=== PATIENT | female | born 1960 | race Caucasian/White ===

== ENCOUNTER 2021-04-05 06:03 | Outpatient (REF) | payer OTHER, SELFPAY ==
[2021-04-05 11:40] LABS: Hematocrit 38.9 % (37-47); Hemoglobin 13.4 g/dl (12.0-16.0); Mean Corpuscular HGB Conc 34.4 g/dl (31.0-35.0); Mean Corpuscular Hemoglobin 32.1 pg (27.0-33.0); Mean Corpuscular Volume 93.3 fL (80-98); Platelet Count 242 X10*3/uL (160-400); Red Blood Count 4.17 X10*6/uL (4.20-5.50); Red Cell Distribution Width 12.3 % (11.0-16.0); White Blood Count 4.1 X10*3/uL (4.8-10.8)
[2021-04-05 12:04] LABS: Alanine Aminotransferase 58 U/L (0-31); Albumin Level 4.1 g/dL (3.5-5.0); Alkaline Phosphatase 55 U/L (39-117); Anion Gap 15 (12-20); Aspartate Amino Transferase 35 U/L (5-31); Bilirubin Total 0.7 mg/dL (0.0-1.0); Blood Urea Nitrogen 19 mg/dL (9-16); Calcium 9.1 mg/dL (8.4-10.2); Carbon Dioxide 26 mmol/L (22-29); Chloride 105 mmol/L (96-108); Cholesterol 266 mg/dL; Estimated Glomerular Filt Rate > 60; Glucose Fasting 114 mg/dL (60-99); HDL Cholesterol 68 mg/dL; LDL Cholesterol Calculated 162 mg/dl; Potassium 3.8 mmol/L (3.3-5.1); Sodium 142 mmol/L (135-145); Total Protein 6.5 g/dL (6.5-8.0); Triglycerides 181 mg/dL
[2021-04-05 12:24] LABS: Thyroid Stimulating Hormone 1.41 uIU/mL (0.32-4.0)
== END 2021-04-05 06:04 | disposition home or self-care (01) ==
LOC: HO.HMGCLDS 06:03
PROVIDERS: PCP Internal Medicine; Visit Provider Internal Medicine
DX: Z00.00 Encounter for general adult medical examination without abnormal findings (principal); I10 Essential (primary) hypertension
CPT/HCPCS: 36415; 80053; 80061; 84443; 85027

== ENCOUNTER 2021-10-11 08:51 | Outpatient (REF) | payer OTHER, SELFPAY ==
[2021-10-11 11:27] LABS: MANUAL DIFF FLAG NO
[2021-10-11 11:37] LABS: Basophils Percent Auto 0.5 % (0-2); Eosinophils Absolute Auto 0.1 X10*3/uL (0.0-0.4); Eosinophils Percent Auto 1.7 % (0-4); Hematocrit 40.3 % (37.0-47.0); Hemoglobin 14.1 g/dl (12.0-16.0); Imm Gran Abs Auto 0.01 X10*3/uL (0.00-0.03); Imm Gran Pct Auto 0.2 % (0.0-0.4); Lymphocytes Absolute Auto 1.7 X10*3/uL (1.2-4.9); Lymphocytes Percent Auto 42.3 % (20-40); Mean Corpuscular Hemoglobin 32.2 pg (27.0-33.0); Mean Platelet Volume 10.1 fL (9.4-12.3); Monocytes Absolute Auto 0.3 X10*3/uL (0.1-1.2); Monocytes Percent Auto 7.2 % (2-11); Neutrophils Absolute Auto 1.9 x10*3/uL (2.0-8.3); Neutrophils Percent Auto 48.1 % (45-73); Platelet Count 285 X10*3/uL (160-400); Red Blood Count 4.38 X10*6/uL (4.20-5.50); Red Cell Distribution Width 11.7 % (11.0-16.0)
[2021-10-11 12:02] LABS: Alanine Aminotransferase 44 U/L (0-31); Albumin Level 4.3 g/dL (3.5-5.0); Alkaline Phosphatase 57 U/L (39-117); Anion Gap 13 (12-20); Aspartate Amino Transferase 24 U/L (5-31); Bilirubin Total 0.6 mg/dL (0.0-1.0); Blood Urea Nitrogen 19 mg/dL (9-16); Calcium 9.5 mg/dL (8.4-10.2); Carbon Dioxide 28 mmol/L (22-29); Chloride 104 mmol/L (96-108); Cholesterol 275 mg/dL; Estimated Glomerular Filt Rate > 60; Glucose Fasting 115 mg/dL (60-99); HDL Cholesterol 64 mg/dL; LDL Cholesterol Calculated 176 mg/dl; Potassium 4.1 mmol/L (3.3-5.1); Sodium 141 mmol/L (135-145); Triglycerides 178 mg/dL
[2021-10-11 12:05] LABS: TSH reflex Free T4 1.06 uIU/mL (0.32-4.0)
[2021-10-11 12:08] LABS: Estimated Average Glucose 111 mg/dL; Hemoglobin A1c % 5.5 %
== END 2021-10-11 08:52 | disposition home or self-care (01) ==
LOC: HO.HMGCLDS 08:51
PROVIDERS: PCP Internal Medicine; Visit Provider Internal Medicine
DX: Z00.00 Encounter for general adult medical examination without abnormal findings (principal); I10 Essential (primary) hypertension; E78.5 Hyperlipidemia, unspecified; R73.9 Hyperglycemia, unspecified
CPT/HCPCS: 36415; 80053; 80061; 83036; 84443; 85025

== ENCOUNTER 2022-01-28 06:22 | Outpatient (REF) | payer OTHER, SELFPAY ==
[2022-01-28 12:26] LABS: Alanine Aminotransferase 42 U/L (0-31); Albumin Level 4.3 g/dL (3.5-5.0); Alkaline Phosphatase 62 U/L (39-117); Anion Gap 12 (12-20); Aspartate Amino Transferase 27 U/L (5-31); Bilirubin Total 0.9 mg/dL (0.0-1.0); Blood Urea Nitrogen 16 mg/dL (9-16); Calcium 9.8 mg/dL (8.4-10.2); Carbon Dioxide 31 mmol/L (22-29); Chloride 102 mmol/L (96-108); Cholesterol 189 mg/dL; Estimated Glomerular Filt Rate > 60; Glucose Fasting 128 mg/dL (60-99); HDL Cholesterol 73 mg/dL; LDL Cholesterol Calculated 91 mg/dl; Potassium 3.7 mmol/L (3.3-5.1); Sodium 141 mmol/L (135-145); Total Protein 6.9 g/dL (6.5-8.0); Triglycerides 126 mg/dL
[2022-01-28 12:38] LABS: Estimated Average Glucose 111 mg/dL; Hemoglobin A1C 150.8578 umol/L; Hemoglobin A1c % 5.5 %
== END 2022-01-28 06:23 | disposition home or self-care (01) ==
LOC: HO.HMGCLDS 06:22
PROVIDERS: Visit Provider Internal Medicine
DX: E78.5 Hyperlipidemia, unspecified (principal); R73.9 Hyperglycemia, unspecified
CPT/HCPCS: 36415; 80053; 80061; 83036

== ENCOUNTER → 2022-07-28 12:38 | Outpatient (REF) | payer OTHER, SELFPAY ==
--- NOTE | 2022-07-28 12:40 | CA_ITS ---
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 Normal LV systolic function with grade 1 diastolic dysfunction 2. Normal cardiac valvular Doppler 3. No gross pericardial effusion Findings Left Ventricle Normal left ventricular size, thickness, and systolic function. The visually estimated ejection fraction is between 55-60%. Spectral Doppler is indicative of an impaired relaxation filling pattern. E/E prime ratio is <8, consistent with normal filling pressures. Evidence suggests grade I (mild) diastolic dysfunction. Right Ventricle Normal right ventricular cavity size and systolic function. Atria The left atrium is normal in size. Interatrial shunt cannot be excluded. The right atrium is normal in size. Aortic Valve The aortic valve was not well visualized. There is no aortic valve stenosis. There is no aortic valve regurgitation. Mitral Valve Likely normal mitral valve structure and function. There is trace mitral valve regurgitation. There is no mitral valve stenosis. Pulmonic Valve The pulmonic valve was not well visualized. Tricuspid Valve Likely normal tricuspid valve structure and function. Tricuspid regurgitation envelope is inadequate for calculation of right ventricular systolic pressure. Normal right atrial pressure. Great Vessels All visible segments of the aorta are normal in size. The pulmonary artery was not well visualized. Venous The inferior vena cava is normal in size and collapses greater than 50% with inspiration. Pericardium/Pleural There is no evidence of pericardial effusion. Prior Study Comparison No prior study available for comparison. Measurements 2D Linear Measurements IVSd: 0.94 0.6-0.9/0.6-1.0 cm LVIDd: 4.21 3.9-5.3/4.2-5.9 cm LVIDd Index: 2.37 2.4-3.2/2.2-3.1 cm/m2 LVIDs: 2.77 2.0-3.6 cm LVPWd: 0.81 0.7-1.1 cm LA Diam: 3.20 2.7-3.8/3.0-4.0 cm LAIDs Index: 1.80 1.5-2.3 cm/m2 LV Mass: 142.46 67-162/88-224 g LV Mass Index: 80.04 43-95/49-115 g/m2 LVOT Diam: 2.00 3.0+(-)1.3 cm 2D Systolic Function EF 4C: 59.20 >55% EF 2C: 55.50 >55% EF BiP: 55.90 >55% Mitral Valve MV Pk E: 0.48 MV PK A: 0.52 MV Decel Time: 262.00 E/A: 0.90 E'Lateral: 7.40 E'Medial: 6.74 E/E' Med: 7.10 E/E' Lat: 6.40 PHT: 77.00 MVA PHT: 2.86 Decel Ness: 1.82 Aortic Valve AoV Pk Marek: 1.42 AoV Mn Marek: 0.96 AoV VTI: 0.27 AoV Pk Grad: 8.00 Aov Mn Grad: 4.00 UMA Cont.VTI: 1.99 LVOT LVOT Pk Marek: 0.93 LVOT Mn Marek: 0.59 LVOT VTI: 0.17 LVOT Pk Grad: 3.00 LVOT Mn Grad: 2.00 LVOT Diam: 2.00 LVOT Area: 3.14 Diastolic Function MV Pk E: 0.48 MV Pk A: 0.52 E/A: 0.90 E'Medial: 6.74 E/E' Med: 7.10 E' Laterial: 7.40 E/E' Lat: 6.40 Right Ventricle TAPSE (mm): 19.90 TVS' Marek: 8.49 Tricuspid Valve TR Pk Marek: 1.85 TR Pk Grad: 14.00 RA Press: 3.00 Great Vessels Aorta Sinus of Valsalva: 3.34 2.0-3.5 cm Ao Asc: 3.30 2.1-3.4 cm Updated in Other Vendor System with Status of Final Billy Griffith MD electronically signed on 07/28/2022 3:45:30 PM with status of Final
== END ==
LOC: HO.CARD 12:38
PROVIDERS: PCP Internal Medicine; Visit Provider Internal Medicine
DX: I51.7 Cardiomegaly (principal)
CPT/HCPCS: 93306

== ENCOUNTER 2022-10-17 06:22 | Outpatient (REF) | payer OTHER, SELFPAY ==
[2022-10-17 11:12] LABS: MANUAL DIFF FLAG NO
[2022-10-17 11:43] LABS: Basophils Percent Auto 0.4 % (0-2); Eosinophils Absolute Auto 0.1 X10*3/uL (0.0-0.4); Hematocrit 41.4 % (37.0-47.0); Hemoglobin 14.1 g/dl (12.0-16.0); Imm Gran Abs Auto 0.01 X10*3/uL (0.00-0.03); Imm Gran Pct Auto 0.2 % (0.0-0.4); Lymphocytes Percent Auto 41.6 % (20-40); Mean Corpuscular HGB Conc 34.1 g/dl (31.0-35.0); Mean Corpuscular Hemoglobin 31.3 pg (27.0-33.0); Monocytes Absolute Auto 0.3 X10*3/uL (0.1-1.2); Monocytes Percent Auto 6.6 % (2-11); Neutrophils Absolute Auto 2.3 x10*3/uL (2.0-8.3); Neutrophils Percent Auto 48.2 % (45-73); Platelet Count 260 X10*3/uL (160-400); Red Cell Distribution Width 12.3 % (11.0-16.0); White Blood Count 4.7 X10*3/uL (4.8-10.8)
[2022-10-17 12:00] LABS: Estimated Average Glucose 114 mg/dL; Hemoglobin A1c % 5.6 %
[2022-10-17 13:20] LABS: Alanine Aminotransferase 33 U/L (0-31); Albumin Level 4.2 g/dL (3.5-5.0); Alkaline Phosphatase 61 U/L (39-117); Anion Gap 11 (12-20); Aspartate Amino Transferase 21 U/L (5-31); Bilirubin Total 0.7 mg/dL (0.0-1.0); Blood Urea Nitrogen 17 mg/dL (9-16); Calcium 9.7 mg/dL (8.4-10.2); Carbon Dioxide 30 mmol/L (22-29); Chloride 101 mmol/L (96-108); Cholesterol 184 mg/dL; Estimated Glomerular Filt Rate > 60; Glucose Fasting 117 mg/dL (60-99); HDL Cholesterol 67 mg/dL; LDL Cholesterol Calculated 85 mg/dl; Potassium 4.2 mmol/L (3.3-5.1); Sodium 138 mmol/L (135-145); TSH reflex Free T4 2.31 uIU/mL (0.32-4.0); Total Protein 6.6 g/dL (6.5-8.0); Triglycerides 160 mg/dL; Vitamin D 25-OH Total 18.1 ng/mL (>30)
== END 2022-10-17 06:23 | disposition home or self-care (01) ==
LOC: HO.HMGCLDS 06:22
PROVIDERS: PCP Internal Medicine; Visit Provider Internal Medicine
DX: I10 Essential (primary) hypertension (principal); R73.9 Hyperglycemia, unspecified; E78.5 Hyperlipidemia, unspecified
CPT/HCPCS: 36415; 80053; 80061; 82306; 83036; 84443; 85025

== ENCOUNTER 2022-12-22 06:09 | Outpatient (REF) | payer OTHER, SELFPAY ==
[2022-12-22 12:05] LABS: Vitamin D 25-OH Total 38.5 ng/mL (>30)
== END 2022-12-22 06:10 | disposition home or self-care (01) ==
LOC: HO.HMGCLDS 06:09
PROVIDERS: PCP Internal Medicine; Visit Provider Internal Medicine
DX: I10 Essential (primary) hypertension (principal); E78.5 Hyperlipidemia, unspecified; E55.9 Vitamin D deficiency, unspecified
CPT/HCPCS: 36415; 82306

== ENCOUNTER 2023-04-13 06:24 | Outpatient (REF) | payer OTHER, SELFPAY ==
[2023-04-13 11:12] LABS: MANUAL DIFF FLAG NO
[2023-04-13 11:33] LABS: Basophils Percent Auto 0.7 % (0-2); Eosinophils Absolute Auto 0.1 X10*3/uL (0.0-0.4); Eosinophils Percent Auto 2.7 % (0-4); Hematocrit 39.9 % (37.0-47.0); Hemoglobin 13.9 g/dl (12.0-16.0); Imm Gran Abs Auto 0.02 X10*3/uL (0.00-0.03); Imm Gran Pct Auto 0.4 % (0.0-0.4); Lymphocytes Absolute Auto 1.9 X10*3/uL (1.2-4.9); Lymphocytes Percent Auto 42.3 % (20-40); Mean Corpuscular HGB Conc 34.8 g/dl (31.0-35.0); Mean Corpuscular Hemoglobin 32.3 pg (27.0-33.0); Mean Corpuscular Volume 92.6 fL (80.0-98.0); Mean Platelet Volume 10.2 fL (9.4-12.3); Monocytes Absolute Auto 0.3 X10*3/uL (0.1-1.2); Monocytes Percent Auto 6.7 % (2-11); Neutrophils Absolute Auto 2.1 x10*3/uL (2.0-8.3); Neutrophils Percent Auto 47.2 % (45-73); Platelet Count 245 X10*3/uL (160-400); Red Blood Count 4.31 X10*6/uL (4.20-5.50); Red Cell Distribution Width 11.9 % (11.0-16.0); White Blood Count 4.5 X10*3/uL (4.8-10.8)
[2023-04-13 11:38] LABS: Estimated Average Glucose 105 mg/dL; Hemoglobin A1C 133.0812 umol/L; Hemoglobin A1c % 5.3 %
[2023-04-13 11:58] LABS: Alanine Aminotransferase 33 U/L (0-31); Albumin Level 4.1 g/dL (3.5-5.0); Alkaline Phosphatase 55 U/L (39-117); Anion Gap 14 (12-20); Aspartate Amino Transferase 23 U/L (5-31); Bilirubin Total 0.7 mg/dL (0.0-1.0); Blood Urea Nitrogen 17 mg/dL (9-16); Calcium 9.2 mg/dL (8.4-10.2); Carbon Dioxide 27 mmol/L (22-29); Chloride 106 mmol/L (96-108); Cholesterol 189 mg/dL; Estimated Glomerular Filt Rate > 60; Glucose Fasting 119 mg/dL (60-99); HDL Cholesterol 68 mg/dL; LDL Cholesterol Calculated 102 mg/dl; Potassium 3.8 mmol/L (3.3-5.1); Sodium 143 mmol/L (135-145); Total Protein 6.5 g/dL (6.5-8.0); Triglycerides 96 mg/dL; Vitamin D 25-OH Total 47.1 ng/mL (>30)
== END 2023-04-13 06:25 | disposition home or self-care (01) ==
LOC: HO.HMGCLDS 06:24
PROVIDERS: PCP Internal Medicine; Visit Provider Internal Medicine
DX: Z00.00 Encounter for general adult medical examination without abnormal findings (principal); E55.9 Vitamin D deficiency, unspecified; E78.5 Hyperlipidemia, unspecified; R73.9 Hyperglycemia, unspecified
CPT/HCPCS: 36415; 80053; 80061; 82306; 83036; 85025

== ENCOUNTER 2023-06-30 10:01 | Outpatient (AMB) | payer OTHER, SELFPAY ==
[2023-06-30 10:12] VITALS: BP 134/80; PULSE 73; O2SAT 98; BMI 30.8
--- NOTE | 2023-06-30 10:12 | MHC.PC.OV ---
Vital Signs 06/30/23 10:12 Height 5 ft 3 in Weight 174 lb BMI 30.8 BP 134/80 Blood Pressure Location Lt brachial Position Sitting Pulse 73 Pulse Source Pulse Oximeter Pulse Oximetry (%) 98 Oxygen Delivery Method Room Air Intake Visit Reasons: 2 month follow up HTN Intake Note: Pt is here today for 2 months follow up visit. Allergies shrimp Allergy (Intermediate, Verified 06/30/23 10:15) unknown erythromycin base [From Erythrocin] Allergy (Mild, Verified 06/30/23 10:15) rash Medication List - Last Reconciled 06/30/23 by Catie Nassar MD amlodipine 5 mg PO DAILY atorvastatin (Lipitor) 20 mg PO DAILY cholecalciferol (vitamin D3) 50 mcg PO DAILY fluticasone propionate 50 mcg/actuation (Flonase Allergy Relief) 1 spray intranasal DAILY hydrochlorothiazide 25 mg PO DAILY metoprolol succinate ER 100 mg PO DAILY olmesartan 20 mg PO DAILY Tobacco use date assessed: 04/18/23 Dental Screening Dental Screen Date: 06/30/23 Did you have a dental visit in the last 12 months?: Yes Did you have a dental problem in the last 6 months where you did not have access to dental care?: No Was dental information given to patient?: Patient has dentist HPI 2 month follow up HTN HPI Details Patient presents for the follow-up of hypertension hyperlipidemia, stable on current medications [facility] Medical History Allergic rhinitis Annual physical exam Breast implant status Colonoscopy refused Edema Fatty liver HTN (hypertension) Hyperglycemia Hyperlipidemia Lower back pain Normal Pap smear Overweight Surgical History H/O removal of cyst Family History Father HTN (hypertension) Mother Skin cancer COPD (chronic obstructive pulmonary disease) Other Mental health disorder Substance use disorder Social History Household Members Other:: exercise 5 x a week, work at [employer], single, no children Housing: House Patient Tobacco Use Status: Never used Tobacco e-Cigarette/Vaping Use: Never Used Second Hand Smoke Exposure: Yes (as a child, nothing recent ) Current occupational status: employed Cognitive needs: No Hearing needs: No Vision needs: Yes Questionnaire Thrive Questionnaire Date Thrive assessed: 04/18/23 LEAH-7 AMB Questionnaire LEAH-7 Date LEAH - 7 assessed: 04/18/23 Source: Developed by Drs. Sin Thompson, Maria G Green, Kevin Stallings and colleagues, with an educational murray from [employer]. Review of Systems Const All systems reviewed & are unremarkable except as noted in HPI and below Reports no additional complaints Eyes Reports no additional complaints ENT Reports no additional complaints Card Reports no additional complaints Resp Reports no additional complaints GI Reports no additional complaints Reports no additional complaints Physical exam (Primary Care) Vital Signs: Last Vital Signs Pulse 73 06/30/23 10:12 BP 134/80 06/30/23 10:12 Pulse Ox 98 06/30/23 10:12 Oxygen Delivery Method Room Air 06/30/23 10:12 BMI result Body Mass Index 30.8 Tobacco/Smoking Status: Tobacco use Status Tobacco use date assessed 04/18/23 06/30/23 10:16 Patient Tobacco Use Status Never used Tobacco 06/30/23 10:16 e-Cigarette/Vaping Use Never Used 06/30/23 10:16 Thrive Assessment: Date of Thrive Assessment Date Thrive assessed 04/18/23 06/30/23 10:16 Const General: no acute distress HENMT Head: Yes normal to inspection Face and sinus: Yes normal facial exam Neck Neck: Yes supple Resp Effort & Inspection: normal respiratory effort Auscultation: clear to auscultation bilaterally Cardio Rhythm: regular rhythm Heart sounds: S1 normal heart sound present and S2 normal heart sound present Assessment and Plan Assessment & Plan (1) HTN (hypertension): Code(s): I10 - Essential (primary) hypertension Qualifiers: Hypertension type: primary hypertension Qualified Code(s): I10 - Essential (primary) hypertension Plan: Continue current medications and check basic metabolic panel today, increase physical activity decrease salt intake, weight loss discussed (2) Hyperglycemia: Code(s): R73.9 - Hyperglycemia, unspecified Plan: Continue ADA diet regular exercise (3) Hyperlipidemia: Code(s): E78.5 - Hyperlipidemia, unspecified Plan: Continue statin and return for physical in October (4) Overweight: Code(s): E66.3 - Overweight (5) LVH (left ventricular hypertrophy): Code(s): I51.7 - Cardiomegaly Orders: Orders Basic Metabolic Panel Today I10 - Essential (primary) hypertension Comprehensive [place]. Panel Fast 4 Months E66.3 - Overweight, E78.5 - Hyperlipidemia, unspecified, I10 - Essential (primary) hypertension, I51.7 - Cardiomegaly, R73.9 - Hyperglycemia, unspecified Lipid Panel 4 Months E66.3 - Overweight, E78.5 - Hyperlipidemia, unspecified, I10 - Essential (primary) hypertension, I51.7 - Cardiomegaly, R73.9 - Hyperglycemia, unspecified Complete Blood Count Auto Diff 4 Months E66.3 - Overweight, E78.5 - Hyperlipidemia, unspecified, I10 - Essential (primary) hypertension, I51.7 - Cardiomegaly, R73.9 - Hyperglycemia, unspecified Hemoglobin A1c 4 Months E66.3 - Overweight, E78.5 - Hyperlipidemia, unspecified, I10 - Essential (primary) hypertension, I51.7 - Cardiomegaly, R73.9 - Hyperglycemia, unspecified TSH reflex Free T4 4 Months E66.3 - Overweight, E78.5 - Hyperlipidemia, unspecified, I10 - Essential (primary) hypertension, I51.7 - Cardiomegaly, R73.9 - Hyperglycemia, unspecified Microalbumin, Random (w Creat) 4 Months E66.3 - Overweight, E78.5 - Hyperlipidemia, unspecified, I10 - Essential (primary) hypertension, I51.7 - Cardiomegaly, R73.9 - Hyperglycemia, unspecified Coding Level of Care Code Est Pt Level 4 (78992) Diagnoses HTN (hypertension) I10 Hypertension type: primary hypertension Hyperglycemia R73.9 Hyperlipidemia E78.5 Overweight E66.3 LVH (left ventricular hypertrophy) I51.7
== END 2023-06-30 10:56 | disposition home or self-care (01) ==
PROVIDERS: PCP Internal Medicine; Visit Provider Internal Medicine
DX: I10 Essential (primary) hypertension (principal); R73.9 Hyperglycemia, unspecified; E78.5 Hyperlipidemia, unspecified; E66.3 Overweight; I51.7 Cardiomegaly
CPT/HCPCS: 99214

== ENCOUNTER 2023-06-30 10:46 | Outpatient (REF) | payer OTHER, SELFPAY ==
[2023-06-30 14:38] LABS: Anion Gap 11 (12-20); Blood Urea Nitrogen 16 mg/dL (9-16); Calcium 10.1 mg/dL (8.4-10.2); Carbon Dioxide 29 mmol/L (22-29); Chloride 104 mmol/L (96-108); Estimated Glomerular Filt Rate > 60; Glucose Random 111 mg/dL (60-115); Potassium 4.4 mmol/L (3.3-5.1); Sodium 140 mmol/L (135-145)
== END 2023-06-30 10:47 | disposition home or self-care (01) ==
LOC: HO.HMGCLDS 10:46
PROVIDERS: PCP Internal Medicine; Visit Provider Internal Medicine
DX: I10 Essential (primary) hypertension (principal)
CPT/HCPCS: 36415; 80048

== ENCOUNTER 2023-10-17 06:22 | Outpatient (REF) | payer OTHER, SELFPAY ==
[2023-10-17 11:17] LABS: MANUAL DIFF FLAG NO
[2023-10-17 11:26] LABS: Basophils Percent Auto 0.5 % (0-2); Eosinophils Absolute Auto 0.2 X10*3/uL (0.0-0.4); Eosinophils Percent Auto 3.5 % (0-4); Hematocrit 40.6 % (37.0-47.0); Hemoglobin 13.9 g/dl (12.0-16.0); Imm Gran Abs Auto 0.01 X10*3/uL (0.00-0.03); Imm Gran Pct Auto 0.2 % (0.0-0.4); Lymphocytes Absolute Auto 1.8 X10*3/uL (1.2-4.9); Lymphocytes Percent Auto 41.4 % (20-40); Mean Corpuscular HGB Conc 34.2 g/dl (31.0-35.0); Mean Corpuscular Hemoglobin 31.7 pg (27.0-33.0); Mean Corpuscular Volume 92.7 fL (80.0-98.0); Monocytes Absolute Auto 0.3 X10*3/uL (0.1-1.2); Monocytes Percent Auto 6.8 % (2-11); Neutrophils Percent Auto 47.6 % (45-73); Platelet Count 255 X10*3/uL (160-400); Red Blood Count 4.38 X10*6/uL (4.20-5.50); Red Cell Distribution Width 11.9 % (11.0-16.0); White Blood Count 4.3 X10*3/uL (4.8-10.8)
[2023-10-17 11:43] LABS: Estimated Average Glucose 114 mg/dL; Hemoglobin A1c % 5.6 % (<6.0)
[2023-10-17 12:08] LABS: Alanine Aminotransferase 45 U/L (0-31); Albumin Level 4.4 g/dL (3.5-5.0); Alkaline Phosphatase 60 U/L (39-117); Anion Gap 11 (12-20); Aspartate Amino Transferase 30 U/L (5-31); Blood Urea Nitrogen 15 mg/dL (9-16); Calcium 9.5 mg/dL (8.4-10.2); Carbon Dioxide 29 mmol/L (22-29); Chloride 103 mmol/L (96-108); Cholesterol 189 mg/dL (<200); Estimated Glomerular Filt Rate > 60; Glucose Fasting 128 mg/dL (60-99); HDL Cholesterol 80 mg/dL (>40); LDL Cholesterol Calculated 87 mg/dL (<100); Potassium 3.5 mmol/L (3.3-5.1); Sodium 139 mmol/L (135-145); TSH reflex Free T4 2.45 uIU/mL (0.32-4.0); Total Protein 7.1 g/dL (6.5-8.0); Triglycerides 113 mg/dL (<150)
[2023-10-17 12:38] LABS: Creatinine Urine 159.38 mg/dL; Microalbum/Creatinine Ratio Ur 4.3 ug/mg cr (<30)
== END 2023-10-17 06:23 | disposition home or self-care (01) ==
LOC: HO.HMGCLDS 06:22
PROVIDERS: PCP Internal Medicine; Visit Provider Internal Medicine
DX: I11.0 Hypertensive heart disease with heart failure (principal); R73.9 Hyperglycemia, unspecified; E66.3 Overweight; E78.5 Hyperlipidemia, unspecified
CPT/HCPCS: 36415; 80053; 80061; 82043; 82570; 83036; 84443; 85025

== ENCOUNTER 2023-10-20 10:16 | Outpatient (AMB) | payer OTHER, SELFPAY ==
[2023-10-20 10:31] VITALS: BP 126/76; PULSE 79; O2SAT 96; BMI 31.5
--- NOTE | 2023-10-20 10:31 | A.OFFPC_ITS ---
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 Allergies shrimp Allergy (Intermediate, Verified 10/20/23 10:49) unknown erythromycin base [From Erythrocin] Allergy (Mild, Verified 10/20/23 10:49) rash Tobacco use date assessed: 10/20/23 Dental Screening Dental Screen Date: 10/20/23 Did you have a dental visit in the last 12 months?: Yes Did you have a dental problem in the last 6 months where you did not have access to dental care?: No Was dental information given to patient?: Patient has dentist HPI Annual PE - due for cervical cancer screening HPI Details Patient presents for physical PFSH Medical History Hyperglycemia Hyperlipidemia Overweight Fatty liver (~10/20/23) Lower back pain Edema Allergic rhinitis Colonoscopy refused Annual physical exam Normal Pap smear HTN (hypertension) Breast implant status Surgical History H/O removal of cyst Family History Father HTN (hypertension) Mother Skin cancer COPD (chronic obstructive pulmonary disease) Other Mental health disorder Substance use disorder Social History Household Members Other:: exercise 5 x a week, work at [employer], single, no children Housing: House Patient Tobacco Use Status: Never used Tobacco e-Cigarette/Vaping Use: Never Used Second Hand Smoke Exposure: Yes (as a child, nothing recent ) Current occupational status: employed Cognitive needs: No Hearing needs: No Vision needs: Yes Questionnaire Thrive Questionnaire Date Thrive assessed: 04/18/23 I am a: Patient What is your living situation today?: I have a steady place to live Within the past 12 months, did the food you bought not last and you didn't have the money to get more?: Never true Within the past 12 months, did you worry whether your food would run out before you got money to buy more?: Never true Please select the resources that you would like help with: None AUDIT C Alcohol Use Questionnaire (AUDIT-C) 1. How often do you have a drink containing alcohol?: 2-3 times a week 2. How many drinks containing alcohol do you have on a typical day when you are drinking?: 1 or 2 3. How often do you have six or more drinks on one occasion?: Never Total Score: 3 LEAH-7 AMB Questionnaire LEAH-7 Date LEAH - 7 assessed: 04/18/23 Feeling nervous, anxious, or on edge: 0 = Not at all Not being able to stop or control worryin = Not at all Worrying too much about different things: 0 = Not at all Trouble relaxin = Not at all Being so restless that it is hard to sit still: 0 = Not at all Becoming easily annoyed or irritable: 0 = Not at all Feeling afraid as if something awful might happen: 0 = Not at all Total LEAH-7 score (0-4 normal; 5-9 mild; 10-14 moderate; 15-21 severe): 0 Source: Developed by Drs. Sin Thompson, Maria G Green, Kevin Stallings and colleagues, with an educational murray from [employer]. Review of Systems Const All systems reviewed & are unremarkable except as noted in HPI and below Reports no additional complaints Eyes Reports no additional complaints ENT Reports no additional complaints Card Reports no additional complaints Resp Reports no additional complaints GI Reports no additional complaints Reports no additional complaints Physical exam (Primary Care) Vital Signs: Last Vital Signs Pulse 79 10/20/23 10:31 BP 126/76 10/20/23 10:31 Pulse Ox 96 10/20/23 10:31 Oxygen Delivery Method Room Air 10/20/23 10:31 BMI result Body Mass Index 31.5 Tobacco/Smoking Status: Tobacco use Status Tobacco use date assessed 10/20/23 10/20/23 10:52 Patient Tobacco Use Status Never used Tobacco 10/20/23 10:52 e-Cigarette/Vaping Use Never Used 10/20/23 10:31 Thrive Assessment: Date of Thrive Assessment Date Thrive assessed 04/18/23 10/20/23 10:31 Const General: no acute distress HENMT Head: Yes normal to inspection Ears: hearing grossly normal bilaterally Face and sinus: Yes normal facial exam Mouth: Normal oral and palatal mucosa present Throat: Yes posterior oropharynx normal Eyes General: appearance normal, both eyes and all related structures Neck Neck: Yes no lymphadenopathy and Yes supple Chest Breast/axilla inspection: normal inspection of the breasts Breast/axilla palpation: normal palpation of the breasts and no axillary lymphadenopathy Resp Effort & Inspection: normal respiratory effort Auscultation: clear to auscultation bilaterally Cardio Rhythm: regular rhythm Heart sounds: S1 normal heart sound present and S2 normal heart sound present GI Inspection: Yes normal to inspection Palpation (GI): Soft to palpation Percussion: Yes normal to percussion Auscultation: normal bowel sounds External Female Exam: normal external appearance Speculum Exam - Vagina: normal appearance of the vagina Speculum Exam - Cervix: normal appearance of the cervix Bimanual exam- vagina & uterus: normal bimanual exam Assessment and Plan Assessment & Plan (1) Hyperglycemia: Code(s): R73.9 - Hyperglycemia, unspecified Plan: A1c is 5.6 ADA diet regular physical activity weight loss discussed with the patient, follow-up in 4 months with a fasting labs before (2) Hyperlipidemia: Code(s): E78.5 - Hyperlipidemia, unspecified Plan: Continue statin (3) HTN (hypertension): Code(s): I10 - Essential (primary) hypertension Qualifiers: Hypertension type: primary hypertension Qualified Code(s): I10 - Essential (primary) hypertension Plan: Continue current medications (4) Annual physical exam: Code(s): Z00.00 - Encounter for general adult medical examination without abnormal findings Plan: Well-balanced diet regular exercise weight loss discussed with the patient. She declined colonoscopy and mammogram. Cologuard will be sent, Pap smear was done today (5) Colonoscopy refused: Comment: 11/11, Cologuard ordered Code(s): Z53.20 - Procedure and treatment not carried out because of patient's decision for unspecified reasons Orders: Orders Pap Smear Today E78.5 - Hyperlipidemia, unspecified, I10 - Essential (primary) hypertension, R73.9 - Hyperglycemia, unspecified, Z00.00 - Encounter for general adult medical examination without abnormal findings, Z53.20 - Procedure and treatment not carried out because of patient's decision for unspecified reasons Microalbumin, Random (w Creat) 4 Months E78.5 - Hyperlipidemia, unspecified, I10 - Essential (primary) hypertension, R73.9 - Hyperglycemia, unspecified Basic Metabolic Panel 1 Month E78.5 - Hyperlipidemia, unspecified, I10 - Essential (primary) hypertension, R73.9 - Hyperglycemia, unspecified, Z00.00 - Encounter for general adult medical examination without abnormal findings Comprehensive [place]. Panel Fast 4 Months E78.5 - Hyperlipidemia, unspecified, I10 - Essential (primary) hypertension, R73.9 - Hyperglycemia, unspecified Hemoglobin A1c 4 Months E78.5 - Hyperlipidemia, unspecified, I10 - Essential (primary) hypertension, R73.9 - Hyperglycemia, unspecified Lipid Panel 4 Months E78.5 - Hyperlipidemia, unspecified, I10 - Essential (primary) hypertension, R73.9 - Hyperglycemia, unspecified Complete Blood Count Auto Diff 4 Months E78.5 - Hyperlipidemia, unspecified, I10 - Essential (primary) hypertension, R73.9 - Hyperglycemia, unspecified Referrals Cologuard Test Z12.11 - Encounter for screening for malignant neoplasm of colon, Z12.12 - Encounter for screening for malignant neoplasm of rectum Coding Level of Care Code Est Pt Prev Care 40-64y(08523) Diagnoses Hyperglycemia R73.9 Hyperlipidemia E78.5 Primary hypertension I10 Hypertension type: primary hypertension Annual physical exam Z00.00 Colonoscopy refused Z53.20
== END 2023-10-20 11:24 | disposition home or self-care (01) ==
PROVIDERS: Visit Provider Internal Medicine
DX: R73.9 Hyperglycemia, unspecified (principal); E78.5 Hyperlipidemia, unspecified; I10 Essential (primary) hypertension; Z00.00 Encounter for general adult medical examination without abnormal findings; Z53.20 Procedure and treatment not carried out because of patient's decision for unspecified reasons
CPT/HCPCS: 99396

== ENCOUNTER 2023-10-20 11:27 | Outpatient (REF) | payer OTHER, SELFPAY ==
[2023-10-27 07:45] LABS: HPV mRNA E6/E7 Not Detected (Not Detected)
== END 2023-10-20 11:28 | disposition home or self-care (01) ==
LOC: HO.LNP 11:27
PROVIDERS: Visit Provider Internal Medicine
DX: Z12.4 Encounter for screening for malignant neoplasm of cervix (principal); Z11.51 Encounter for screening for human papillomavirus (HPV)
CPT/HCPCS: 87624; 88142

== ENCOUNTER 2023-11-30 06:28 | Outpatient (REF) | payer BC, SELFPAY ==
[2023-11-30 12:15] LABS: Anion Gap 11 (12-20); Blood Urea Nitrogen 14 mg/dL (9-16); Calcium 9.2 mg/dL (8.4-10.2); Carbon Dioxide 26 mmol/L (22-29); Chloride 107 mmol/L (96-108); Estimated Glomerular Filt Rate > 60; Glucose Random 120 mg/dL (60-115); Sodium 140 mmol/L (135-145)
== END 2023-11-30 06:29 | disposition home or self-care (01) ==
LOC: HO.HMGCLDS 06:28
PROVIDERS: PCP Internal Medicine; Visit Provider Internal Medicine
DX: Z00.00 Encounter for general adult medical examination without abnormal findings (principal); R73.9 Hyperglycemia, unspecified; E78.5 Hyperlipidemia, unspecified; I10 Essential (primary) hypertension
CPT/HCPCS: 36415; 80048

== ENCOUNTER 2024-02-14 06:19 | Outpatient (REF) | payer BC, SELFPAY ==
[2024-02-14 10:19] LABS: MANUAL DIFF FLAG NO
[2024-02-14 10:21] LABS: Basophils Percent Auto 0.5 % (0-2); Eosinophils Absolute Auto 0.3 X10*3/uL (0.0-0.4); Eosinophils Percent Auto 6.8 % (0-4); Hematocrit 38.1 % (37.0-47.0); Hemoglobin 13.5 g/dl (12.0-16.0); Imm Gran Abs Auto 0.02 X10*3/uL (0.00-0.03); Imm Gran Pct Auto 0.5 % (0.0-0.4); Lymphocytes Absolute Auto 1.6 X10*3/uL (1.2-4.9); Lymphocytes Percent Auto 41.9 % (20-40); Mean Corpuscular HGB Conc 35.4 g/dl (31.0-35.0); Mean Corpuscular Hemoglobin 32.2 pg (27.0-33.0); Mean Corpuscular Volume 90.9 fL (80.0-98.0); Mean Platelet Volume 10.1 fL (9.4-12.3); Monocytes Absolute Auto 0.3 X10*3/uL (0.1-1.2); Monocytes Percent Auto 7.3 % (2-11); Neutrophils Absolute Auto 1.7 x10*3/uL (2.0-8.3); Platelet Count 254 X10*3/uL (160-400); Red Blood Count 4.19 X10*6/uL (4.20-5.50); Red Cell Distribution Width 11.9 % (11.0-16.0); White Blood Count 3.8 X10*3/uL (4.8-10.8)
[2024-02-14 11:00] LABS: Estimated Average Glucose 111 mg/dL; Hemoglobin A1c % 5.5 % (<6.0)
[2024-02-14 11:06] LABS: Alanine Aminotransferase 45 U/L (0-31); Albumin Level 4.1 g/dL (3.5-5.0); Alkaline Phosphatase 68 U/L (39-117); Anion Gap 12 (12-20); Aspartate Amino Transferase 32 U/L (5-31); Bilirubin Total 0.8 mg/dL (0.0-1.0); Blood Urea Nitrogen 14 mg/dL (9-16); Calcium 9.6 mg/dL (8.4-10.2); Carbon Dioxide 27 mmol/L (22-29); Chloride 105 mmol/L (96-108); Cholesterol 172 mg/dL (<200); Estimated Glomerular Filt Rate > 60; Glucose Fasting 128 mg/dL (60-99); HDL Cholesterol 68 mg/dL (>40); LDL Cholesterol Calculated 85 mg/dL (<100); Microalbum/Creatinine Ratio Ur 4.7 ug/mg cr (<30); Potassium 3.6 mmol/L (3.3-5.1); Sodium 140 mmol/L (135-145); Total Protein 6.7 g/dL (6.5-8.0); Triglycerides 97 mg/dL (<150)
== END 2024-02-14 06:20 | disposition home or self-care (01) ==
LOC: HO.HMGCLDS 06:19
PROVIDERS: PCP Internal Medicine; Visit Provider Internal Medicine
DX: R73.9 Hyperglycemia, unspecified (principal); I10 Essential (primary) hypertension; E78.5 Hyperlipidemia, unspecified
CPT/HCPCS: 36415; 80053; 80061; 82043; 82570; 83036; 85025

== ENCOUNTER 2024-02-19 13:52 | Outpatient (AMB) | payer BC, SELFPAY ==
[2024-02-19 14:00] VITALS: BP 112/70; PULSE 65; O2SAT 98; BMI 31.9
--- NOTE | 2024-02-19 14:00 | MHC.PC.OV ---
Vital Signs 02/19/24 14:00 Height 5 ft 3 in Weight 180 lb BMI 31.9 BP 112/70 Blood Pressure Location Rt brachial Position Sitting Pulse 65 Pulse Source Pulse Oximeter Pulse Oximetry (%) 98 Oxygen Delivery Method Room Air Intake Visit Reasons: 4 month follow up Intake Note: Pt is here today for 4 months follow up visit. Allergies shrimp Allergy (Intermediate, Verified 02/19/24 14:02) unknown erythromycin base [From Erythrocin] Allergy (Mild, Verified 02/19/24 14:02) rash Medication List - Last Reconciled 02/19/24 by Catie Nassar MD amlodipine 5 mg PO DAILY atorvastatin (Lipitor) 20 mg PO DAILY cholecalciferol (vitamin D3) 50 mcg PO DAILY fluticasone propionate 50 mcg/actuation (Flonase Allergy Relief) 1 spray intranasal DAILY hydrochlorothiazide 25 mg PO DAILY metoprolol succinate ER 100 mg PO DAILY olmesartan 20 mg PO DAILY Tobacco use date assessed: 02/19/24 Dental Screening Dental Screen Date: 02/19/24 Did you have a dental visit in the last 12 months?: Yes Did you have a dental problem in the last 6 months where you did not have access to dental care?: No Was dental information given to patient?: Patient has dentist HPI 4 month follow up HPI Details Pt presents for HTN, hyperlipid stable on current medications PFSH Medical History Hyperglycemia Hyperlipidemia Overweight Fatty liver (~10/20/23) Lower back pain Edema Allergic rhinitis Colonoscopy refused Annual physical exam Normal Pap smear HTN (hypertension) Breast implant status Surgical History H/O removal of cyst Family History Father HTN (hypertension) Mother Skin cancer COPD (chronic obstructive pulmonary disease) Other Mental health disorder Substance use disorder Social History Household Members Other:: exercise 5 x a week, work at [employer], single, no children Housing: House Patient Tobacco Use Status: Never used Tobacco e-Cigarette/Vaping Use: Never Used Second Hand Smoke Exposure: Yes (as a child, nothing recent ) Current occupational status: employed Cognitive needs: No Hearing needs: No Vision needs: Yes Questionnaire PHQ-9 Over the last 2 weeks, how often have you been bothered by any of the following problems? 1. Little interest or pleasure in doing things: not at all 2. Feeling down, depressed, or hopeless: not at all 3. Trouble falling or staying asleep, or sleeping too much: not at all 4. Feeling tired or having little energy: not at all 5. Poor appetite or overeating: not at all 6. Feeling bad about yourself - or that you are a failure or have let yourself or your family down: not at all 7. Trouble concentrating on things, such as reading the newspaper or watching television: not at all 8. Moving or speaking so slowly that other people could have noticed. Or the opposite - being so fidgety or restless that you have been moving around a lot more than usual: not at all 9. Thoughts that you would be better off or of hurting yourself in some way: not at all Total score: 0 Depression Screening Interpretation: Negative Depression Screening Done: Yes Source: Developed by Drs. Sin Thompson, Maria G Green, Kevin Stallings and colleagues, with an educational murray from [employer]. Thrive Questionnaire Date Thrive assessed: 02/19/24 I am a: Patient What is your living situation today?: I have a steady place to live Within the past 12 months, did the food you bought not last and you didn't have the money to get more?: Never true Within the past 12 months, did you worry whether your food would run out before you got money to buy more?: Never true Do you have trouble paying for medicines?: No Do you have trouble getting transportation to medical appointments?: No Do you have trouble paying your heating and electricity bill?: No Do you have trouble taking care of your child, family member or friend?: No Do you have trouble with day-to-day activities such as bathing, preparing meals, shopping, managing finances, etc.?: No Are you currently unemployed and looking for a job?: No Are you interested in more education?: No Please select the resources that you would like help with: None Currently or been in a relationship where the following occur: no concerns reported THRIVE Score: 0 AUDIT C Alcohol Use Questionnaire (AUDIT-C) 1. How often do you have a drink containing alcohol?: 2-3 times a week 2. How many drinks containing alcohol do you have on a typical day when you are drinking?: 1 or 2 3. How often do you have six or more drinks on one occasion?: Never Total Score: 3 LEAH-7 AMB Questionnaire LEAH-7 Date LEAH - 7 assessed: 02/19/24 Feeling nervous, anxious, or on edge: 0 = Not at all Not being able to stop or control worryin = Not at all Worrying too much about different things: 0 = Not at all Trouble relaxin = Not at all Being so restless that it is hard to sit still: 0 = Not at all Becoming easily annoyed or irritable: 0 = Not at all Feeling afraid as if something awful might happen: 0 = Not at all Total LEAH-7 score (0-4 normal; 5-9 mild; 10-14 moderate; 15-21 severe): 0 Source: Developed by Drs. Sin Thompson, Maria G Green, Kevin Stallings and colleagues, with an educational murray from [employer]. Review of Systems Const All systems reviewed & are unremarkable except as noted in HPI and below Reports no additional complaints Eyes Reports no additional complaints ENT Reports no additional complaints Card Reports no additional complaints Resp Reports no additional complaints GI Reports no additional complaints Reports no additional complaints Physical exam (Primary Care) Vital Signs: Last Vital Signs Pulse 65 02/19/24 14:00 BP 112/70 02/19/24 14:00 Pulse Ox 98 02/19/24 14:00 Oxygen Delivery Method Room Air 02/19/24 14:00 BMI result Body Mass Index 31.9 Tobacco/Smoking Status: Tobacco use Status Tobacco use date assessed 02/19/24 02/19/24 14:06 Patient Tobacco Use Status Never used Tobacco 02/19/24 14:06 e-Cigarette/Vaping Use Never Used 02/19/24 14:06 PHQ-9: PHQ-9 Score PHQ-9: Total score 0 02/19/24 14:06 Depression Screening Interpretation: Negative Thrive Assessment: Date of Thrive Assessment Date Thrive assessed 02/19/24 02/19/24 14:06 Currently or been in a relationship where the following occur: no concerns reported Const General: no acute distress HENMT Head: Yes normal to inspection General nose exam: Normal external nose present Face and sinus: Yes normal facial exam Mouth: Normal oral and palatal mucosa present Neck Neck: Yes no lymphadenopathy and Yes supple Resp Effort & Inspection: normal respiratory effort Auscultation: clear to auscultation bilaterally Cardio Rhythm: regular rhythm Heart sounds: S1 normal heart sound present and S2 normal heart sound present Assessment and Plan Assessment & Plan (1) Hyperglycemia: Code(s): R73.9 - Hyperglycemia, unspecified Plan: A1c is 5.5, ADA diet increase exercise weight loss discussed with the patient follow-up in October for physical with a fasting labs before (2) Hyperlipidemia: Code(s): E78.5 - Hyperlipidemia, unspecified Plan: Continue statin (3) HTN (hypertension): Code(s): I10 - Essential (primary) hypertension Qualifiers: Hypertension type: primary hypertension Qualified Code(s): I10 - Essential (primary) hypertension Plan: Continue current medications Orders: Orders Complete Blood Count Man Dif 8 Months E78.5 - Hyperlipidemia, unspecified, I10 - Essential (primary) hypertension, R73.9 - Hyperglycemia, unspecified Hemoglobin A1c 8 Months E78.5 - Hyperlipidemia, unspecified, I10 - Essential (primary) hypertension, R73.9 - Hyperglycemia, unspecified Vitamin B12 and Folate 8 Months E78.5 - Hyperlipidemia, unspecified, I10 - Essential (primary) hypertension, R73.9 - Hyperglycemia, unspecified Microalbumin, Random (w Creat) 8 Months E78.5 - Hyperlipidemia, unspecified, I10 - Essential (primary) hypertension, R73.9 - Hyperglycemia, unspecified Comprehensive Perdido. Panel Fast 8 Months E78.5 - Hyperlipidemia, unspecified, I10 - Essential (primary) hypertension, R73.9 - Hyperglycemia, unspecified Lipid Panel 8 Months E78.5 - Hyperlipidemia, unspecified, I10 - Essential (primary) hypertension, R73.9 - Hyperglycemia, unspecified TSH reflex Free T4 8 Months E78.5 - Hyperlipidemia, unspecified, I10 - Essential (primary) hypertension, R73.9 - Hyperglycemia, unspecified Coding Level of Care Code Est Pt Level 4 (84888) Diagnoses Hyperglycemia R73.9 Hyperlipidemia E78.5 Primary hypertension I10 Hypertension type: primary hypertension
== END 2024-02-19 14:47 | disposition home or self-care (01) ==
PROVIDERS: PCP Internal Medicine; Visit Provider Internal Medicine
DX: R73.9 Hyperglycemia, unspecified (principal); E78.5 Hyperlipidemia, unspecified; I10 Essential (primary) hypertension
CPT/HCPCS: 99214

== ENCOUNTER 2024-02-23 14:49 | Outpatient (AMB) | payer BC, SELFPAY ==
--- NOTE | 2024-02-23 15:00 | A.OFFVIS_ITS ---
Intake Vital Signs 02/23/24 15:11 Height 5 ft 3 in Weight 179 lb 7.3 oz BMI 31.8 BP 130/70 Blood Pressure Location Rt brachial Position Sitting Pulse 71 Intake Visit Reasons: Colonoscopy Screening Intake Note: Rebeca presents to in office visit today for colonoscopy screening. CC: Patient reports she has been doing cologuard and has never had colonoscopy done. She c/o diarrhea on and off for a few years happening more frequently lately. Pt has seen blood on the toilet paper when she wipes. She states years ago she was told she had an anal fissure. Purification Director Required: No Allergies shrimp Allergy (Intermediate, Verified 02/23/24 15:16) unknown erythromycin base [From Erythrocin] Allergy (Mild, Verified 02/23/24 15:16) rash HPI Colonoscopy Screening HPI Details 63-year-old female here for preprocedura l meeting to discuss a screening colonoscopy. She is referred by Catie Nassar of [facility] [place]. PMX Allergic rhinitis Hypertension High cholesterol Fatty liver Left ventricular hypertrophy Hyperglycemia * SURGICAL HISTORY Cyst removal Breast implants * ALLERGIES EES - rash Shrimp anaphylaxis * [employer] LABS: Laboratory Tests 02/14/24 06:37 WBC 3.8 L RBC 4.19 L Hgb 13.5 Hct 38.1 MCV 90.9 MCH 32.2 Plt Count 254 Estimated GFR > 60 Hemoglobin A1c % 5.5 Total Bilirubin 0.8 AST 32 H ALT 45 H Alkaline Phosphata se 68 TODAY'S VISIT This is her first colonoscopy. She will have occasional RB on the TT bethany when she has diarrheal episodes wihch happens once a week BUT she also has some episodes of CIC. No known FHX of bowel problems. She has had food allergy testing in the past. There are no prior problems with anesthesia or sedation. She denies any cardiac or respiratory problems. No ID problems Her maternal grandfather had CRC in his 60's but was also a heavy smoker and drinker, she does not think her mother ever had a colonoscopy as she passed at age 57 from COPD. [facility] Medical History Annual physical exam Hyperglycemia Hyperlipidemia Overweight Fatty liver (~10/20/23) Lower back pain Edema Allergic rhinitis Colonoscopy refused Normal Pap smear HTN (hypertension) Breast implant status Surgical History S/P left breast implant History of removal of skin mole H/O removal of cyst Family History Father HTN (hypertension) Mother Skin cancer COPD (chronic obstructive pulmonary disease) Other Mental health disorder Substance use disorder Social History Household Members Other:: exercise 5 x a week, work at [employer], single, no children Housing: House Patient Tobacco Use Status: Never used Tobacco e-Cigarette/Vaping Use: Never Used Second Hand Smoke Exposure: Yes (as a child, nothing recent ) Current occupational status: employed Cognitive needs: No Hearing needs: No Vision needs: Yes Review of Systems Const Denies fatigue, Denies fever(s), Reports night sweats, Denies poor appetite and Denies weight loss Eyes Details: glasses Reports requires corrective lenses ENT Reports Normal hearing present, Denies dental pain, Denies dysphagia, Denies hearing loss, Denies mouth pain, Denies odynophagia, Denies throat swelling, Denies tongue swelling and Reports other (Dentition adequate) Card Reports no additional complaints Resp Reports no additional complaints GI Details: Denies abdominal pain, Denies melena, Reports bloating, Reports hematochezia, Reports constipation, Denies GI cramping, Denies dysphagia, Denies excessive flatus, Denies early satiety, Denies heartburn, Reports diarrhea, Denies nausea, Denies odynophagia, Denies vomiting and Denies hematemesis Skin/Breast Denies pruritus, Denies lesions, Denies rash and Denies jaundice Neuro Reports Normal hearing present and Denies Abnormal speech present Endo Denies fatigue Aller/Immun Denies throat swelling and Denies tongue swelling Physical Exam Vital Signs: Last Vital Signs Pulse 71 02/23/24 15:11 BP 130/70 02/23/24 15:11 BMI result Body Mass Index 31.8 Const General: cooperative, no acute distress, well developed and well groomed Nutritional Appearance: well nourished and obese Orientation/consciousness: oriented to person, oriented to place and oriented to time Limitations: No language barrier HEENT Head: Yes normocephalic and Yes atraumatic Eyes General: appearance normal, both eyes and all related structures Pupils: Equal, round and reactive pupils present Neck Neck: Yes normal visual inspection and Yes no lymphadenopathy Thyroid: Thyroid normal Resp Effort & Inspection: normal respiratory effort and able to speak in complete sentences Auscultation: clear to auscultation bilaterally Cardio Rate: regular rate Rhythm: regular rhythm Heart sounds: Normal, physiologic split S2 sound present Peripheral pulses: radial pulses present and posterior tibial pulses present GI Inspection: No distended, Yes Abdominal panniculus present and Yes obesity Palpation (GI): Soft to palpation, nontender, no guarding, not rigid and No hepatosplenomegaly present Percussion: Yes normal to percussion Auscultation: normal bowel sounds Rectal Exam - Female: deferred Skin General skin exam: no rashes or lesions noted, turgor normal, skin not dry, no jaundice, No spider nevi and no striae Rashes: no rashes Nails: normal Neuro General: oriented to person, oriented to place and oriented to time Cranial nerves: Yes Equal, round and reactive pupils present and Yes Normal hearing present Speech: No Abnormal speech present Extrem General: Yes normal to inspection, No clubbing, No cyanosis and No edema Psych Appearance: grossly normal and well kempt Mental Status: mental status grossly normal Speech and movement: Normal speech and movement present Affect: normal affect Attitude: cooperative Thought process: Normal thought process present and not confabulating Thought content: Normal thought content present Insight: Fair insight present (Psych) Judgement: Fair judgement present (Psych) Assessment & Plan Assessment & Plan (1) Pre-op examination: Code(s): Z01.818 - Encounter for other preprocedural examination (2) Colon cancer screening: Comment: Negative Cologuard April 2021 Code(s): Z12.11 - Encounter for screening for malignant neoplasm of colon (3) Colonoscopy refused: Comment: 11/11, Cologuard ordered Code(s): Z53.20 - Procedure and treatment not carried out because of patient's decision for unspecified reasons (4) Family history of colon cancer in mother: Comment: Maternal grandfather of colon cancer in his 50s to 60s mother at age 57 of COPD so likely would have had polyps Code(s): Z80.0 - Family history of malignant neoplasm of digestive organs Plan This is her first colonoscopy. She will have occasional RB on the TT bethany when she has diarrheal episodes wihch happens once a week BUT she also has some episodes of CIC. No known FHX of bowel problems. She has had food allergy testing in the past. There are no prior problems with anesthesia or sedation. She denies any cardiac or respiratory problems. No ID problems Her maternal grandfather had CRC in his 60's but was also a heavy smoker and drinker, she does not think her mother ever had a colonoscopy as she passed at age 57 from COPD. Orders: Orders Colonoscopy - GI Use Only Today Z01.818 - Encounter for other preprocedural examination Medications: New sodium,potassium,mag sulfates 17.5-3.13-1.6 gram (Suprep Bowel Prep Kit) 480 mL orally; 354 mL 0RF bisacodyl (Dulcolax (bisacodyl)) 10 mg (2 x 5 mg) PO BEDTIME 2 days 4 tabs 0RF Coding Level of Care Code New Pt Level 3 (16098) Diagnoses Pre-op examination Z01.818 Colon cancer screening Z12.11 Colonoscopy refused Z53.20 Family history of colon cancer in mother Z80.0
[2024-02-23 15:11] VITALS: BP 130/70; PULSE 71; BMI 31.8
== END 2024-02-23 15:46 | disposition home or self-care (01) ==
PROVIDERS: PCP Internal Medicine; Visit Provider Nurse Practitioner
DX: Z01.818 Encounter for other preprocedural examination (principal); Z12.11 Encounter for screening for malignant neoplasm of colon; Z80.0 Family history of malignant neoplasm of digestive organs
CPT/HCPCS: S0285

== ENCOUNTER → 2024-02-23 14:49 | Outpatient (BNVA) | payer BC, SELFPAY | PROVIDERS: PCP Internal Medicine; Visit Provider Nurse Practitioner ==

== ENCOUNTER 2024-08-05 10:58 | Day surgery (SDC) | payer BC, SELFPAY ==
--- NOTE | 2024-08-02 12:12 | HO.ANESPROP2 ---
Documented by User: Toya Sol NP 08/02/24 12:12 HPI - Anesthesia Eval Consult details Narrative: 64yo F for Colonoscopy PMFSH Active Problems Active Problems: All Active Problems Family history of colon cancer in mother (Acute) Pre-op examination (Acute) Mammogram declined (Acute) Colon cancer screening (Acute) Vitamin D deficiency (Acute) LVH (left ventricular hypertrophy) (Acute) Hyperglycemia (Acute) Hyperlipidemia (Acute) Overweight (Acute) Fatty liver (Acute ~10/20/23) Lower back pain (Acute) Edema (Acute) HTN (hypertension) (Acute) Allergic rhinitis (Acute) Colonoscopy refused (Acute) Normal Pap smear (Acute) Past Medical History Medical History Annual physical exam Hyperglycemia Hyperlipidemia Overweight Fatty liver (~10/20/23) Lower back pain Edema Allergic rhinitis Colonoscopy refused Normal Pap smear HTN (hypertension) Breast implant status Family History Family History Father HTN (hypertension) Mother Skin cancer COPD (chronic obstructive pulmonary disease) Other Mental health disorder Substance use disorder Surgical History Surgical History S/P left breast implant History of removal of skin mole H/O removal of cyst Social History Social History Household Members Other:: exercise 5 x a week, work at [employer], single, no children Housing: House Are you a primary manager medicare to a significant other at home: No Do you presently have visiting nurse or other home services: No Patient Tobacco Use Status: Never used Tobacco e-Cigarette/Vaping Use: Never Used Second Hand Smoke Exposure: Yes (as a child, nothing recent ) Use of substances other than those prescribed or required for medical reasons: No Have you been hit, kicked, punched, or otherwise hurt by someone within the past year? If so, by whom?: No Are you DNR?: No Advance Directives: No Advance Directives Information Provided: Yes Recently lost weight without trying: No Current occupational status: employed Cognitive needs: No Hearing needs: No Vision needs: Yes Meds Allergies Allergy/AdvReac Type Severity Reaction Status Date / Time shrimp Allergy Intermediate unknown Verified 02/23/24 15:16 erythromycin base Allergy Mild rash Verified 02/23/24 15:16 [From Erythrocin] Home Medications ?Medication ?Instructions ?Recorded ?Confirmed ?Last Taken ?Type fluticasone propionate 50 1 spray intranasal DAILY 09/09/20 02/19/24 Unknown History mcg/actuation nasal spray,suspension (Flonase Allergy Relief) loteprednol etabonate 0.25 % eye 1 drp ophthalmic (eye) DAILY 02/23/24 Unknown History drops,suspension lutein 20 mg capsule 20 mg PO DAILY 02/23/24 Unknown History Assessment and Plan Assessment Anesthesia Assessment: Chart Reviewed Documented by User: Shira Nino MD 08/05/24 13:33 PMFSH Past Medical History Medical History Annual physical exam Hyperglycemia Hyperlipidemia Overweight Fatty liver (~10/20/23) Lower back pain Edema Allergic rhinitis Colonoscopy refused Normal Pap smear HTN (hypertension) Breast implant status Family History Family History Father HTN (hypertension) Mother Skin cancer COPD (chronic obstructive pulmonary disease) Other Mental health disorder Substance use disorder Family history of problems with anesthesia: No Surgical History Surgical History S/P left breast implant History of removal of skin mole H/O removal of cyst History of Problems with Anesthesia: No Social History Social History Household Members Other:: exercise 5 x a week, work at [employer], single, no children Housing: House Are you a primary manager medicare to a significant other at home: No Do you presently have visiting nurse or other home services: No Patient Tobacco Use Status: Never used Tobacco e-Cigarette/Vaping Use: Never Used Second Hand Smoke Exposure: Yes (as a child, nothing recent ) Use of substances other than those prescribed or required for medical reasons: No Have you been hit, kicked, punched, or otherwise hurt by someone within the past year? If so, by whom?: No Are you DNR?: No Advance Directives: No Advance Directives Information Provided: Yes Recently lost weight without trying: No Current occupational status: employed Cognitive needs: No Hearing needs: No Vision needs: Yes Meds Allergies Allergy/AdvReac Type Severity Reaction Status Date / Time shrimp Allergy Intermediate unknown Verified 02/23/24 15:16 erythromycin base Allergy Mild rash Verified 02/23/24 15:16 [From Erythrocin] Home Medications ?Medication ?Instructions ?Recorded ?Confirmed ?Last Taken ?Type fluticasone propionate 50 1 spray intranasal DAILY 09/09/20 02/19/24 Unknown History mcg/actuation nasal spray,suspension (Flonase Allergy Relief) loteprednol etabonate 0.25 % eye 1 drp ophthalmic (eye) DAILY 02/23/24 Unknown History drops,suspension lutein 20 mg capsule 20 mg PO DAILY 02/23/24 Unknown History Exam Height,Weight and Vital Signs: Height 5 ft 3 in Weight 79.742 kg Vital Signs Temp Pulse Resp BP Pulse Ox O2 Del Method 08/05/24 11:26 97.5 F 86 16 151/88 H 98 Room Air Airway Mallampati Class: II TM Dist: >3cm Neck ROM: Full Loose/Missing/Broken Teeth: No (Denies broken, loose, missing teeth) Heart: RRR Lungs: CTAB Assessment and Plan Assessment Anesthesia Assessment: Anesthesia Plan Discussed and Chart Reviewed Final Anesthetic Review Family History of Problems with Anesthesia: No History of Problems with Anesthesia: No NPO: Yes ASA Class: III Final Preanesthetic Review: No Changes in Pt Med Stat, Meds/Allgs Chart Reviewed, Consent Obtained/Reviewed and Anes Risks/Benef Reviewed Patient Risk: Intermediate Procedure Risk: Low Assessment/Block/Sedation in SS: Assess/Block/Sedation-SS Anesthetic Plan Anesthetic Plan: TIVA Disposition: Standard PACU
[2024-08-05] VITALS (7 sets, daily range): BP systolic 81–151; BP diastolic 51–88; PULSE 69–86; RESP 16; TEMP 36.2–36.4; O2SAT 97–100; BMI 31.1
[2024-08-05] MEDS: Lactated Ringers 1,000 ML 100 ML IVCONT (11:39)
--- NOTE | 2024-08-05 11:46 | MHC.SHP ---
Pre-Procedural Eval Section A - 24 Hr Update-Section A only Date of Service: 08/05/24 The patient is an INPATIENT: No The patient has been examined within 24 hours of the surgical procedure. The History & Physical has been completed within 30 days and I have reviewed it.: No Section B - Complete if H&P > 30 days Chief Complaint: Colon cancer screening, diarrhea, rectal bleeding Relevant Social History: None Present Medications: see Short Stay Collaborative assessment Medical History: Significant History (Hyperglycemia Hyperlipidemia Overweight Fatty liver (~10/20/23) Lower back pain Edema Allergic rhinitis Colonoscopy refused Normal Pap smear HTN (hypertension) Breast implant status) History of Previous Operations: Relevant previous surgery/procedure and date(s) (S/P left breast implant History of removal of skin mole H/O removal of cyst) Allergies: Allergies Allergy/AdvReac Type Severity Reaction Status Date / Time shrimp Allergy Intermediate unknown Verified 02/23/24 15:16 erythromycin base Allergy Mild rash Verified 02/23/24 15:16 [From Erythrocin] Review of Systems Sugical H&P ROS: Negative: Constitution, Cardiovascular and Respiratory and Yes, Specify: Gastrointestinal (diarrhea, rectal bleeding) Exam Surgical H&P Exam: Normal: Heart, Normal: Lungs, Normal: Extremities and Normal: Abdomen Plan Diagnosis/Plan: Unchanged I have reviewed the history and physical and performed a pertinent physical examination on my patient. No changes have occurred unless specified. Time Spent With Patient Time: Total time managing care of this patient today ____ minutes.
--- NOTE | 2024-08-05 13:59 | P.OPN-COLO_ITS ---
Colonoscopy Operative Note Operative Note Date of Service: 08/05/24 Narrative: COLONOSCOPY TILL CECUM WITH BIOPSIES, SNARE POLYPECTOMY AND SUBMUCOSAL INJECTION Pre-op diagnosis: Colon cancer screening (1st colonoscopy) diarrhea, rectal bleeding, family hx of colon cancer (maternal grandfather had CRC in his 60's but was also a heavy smoker and drinker). Post-op diagnosis:? Colon polyp, Diverticulosis, anal fissure Endoscopist:? Blayne Ro MD Anesthesia:?MAC Consent: Indications for the procedure and potential complications of bleeding, perforation, reaction to medications and missed diagnosis were discussed with the patient and informed consent was obtained. Instrument: Olympus PCF H 190 L variable stiffness pediatric colonoscope Monitoring: Vital signs and clinical assessment, intermittent blood pressure monitoring, continuous EKG monitoring, Pulse oximetry and Carbon Dioxide monitoring were done throughout the procedure. Please see anesthesia flowsheet. Colon withdrawl time was 30 minutes. Procedure: The patient was placed in the left lateral decubitis position and pre-procedure medications were administered. After a digital rectal examination of the ano-rectum, the video colonoscope was inserted into the rectum and advanced through the colon to the cecum. The colonoscope was slowly withdrawn in a retrograde panoramic fashion and the colon mucosa was carefully examined including a retroflexed view of the rectum. Findings and interventions are described below. Procedure Difficulty: without difficulty Findings: Terminal Ileum: Not evaluated Cecum: An 8 to 9 mm flat polyp. Polyp was raised with 2 cc of Eleview (submucosal injection) and removed with a hot snare. Ascending Colon: Normal Transverse Colon: Normal Descending Colon: Moderate diverticulosis Sigmoid Colon: Severe diverticulosis with luminal narrowing Rectum: Normal Ano-rectum: A skin tag with a 1 cms long anal fissure - likely source for rectal bleeding Colon preparation: Good after some irrigation. [place] Bowel Preparation Scale Right colon; 2 Transverse colon: 2 Left colon; 2 (0 = Unprepared colon segment with mucosa not seen due to solid stool that cannot be cleared. 1 = Portion of mucosa of the colon segment seen, but other areas of the colon segment not well seen due to staining, residual stool and/or opaque liquid. 2 = Minor amount of residual staining, small fragments of stool and/or opaque liquid, but mucosa of colon segment seen well. 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 Above findings were reviewed with the patient and relevant handouts were given and the discharge area Pt advised to start using Nidedipine rectal ointment 0.3% to the [facility] BIOPSIES SHOWED: A. Colon, cecal polyp: Minute fragment of colonic mucosa with thermal artifact; no adenomatous dysplasia seen. B. Colon, right, biopsy: Colonic mucosa with no specific change; no colitis, granulomas or dysplasia. C. Colon, left, biopsy: Colonic mucosa with no specific change; no colitis, granulomas or dysplasia.
== END 2024-08-05 15:26 | disposition home or self-care (01) ==
PROVIDERS: PCP Internal Medicine; Visit Provider Internal Medicine Gastroenterology
PROC: 0DJD8ZZ Inspection of Lower Intestinal Tract, Via Natural or Artificial Opening Endoscopic (ICD-10-PCS; CPT 45378; principal; 2024-08-05 12:00)
DX: Z12.11 Encounter for screening for malignant neoplasm of colon (principal); K63.5 Polyp of colon; K57.30 Diverticulosis of large intestine without perforation or abscess without bleeding; K64.4 Residual hemorrhoidal skin tags; K62.5 Hemorrhage of anus and rectum; K60.2 Anal fissure, unspecified; R19.7 Diarrhea, unspecified; K76.0 Fatty (change of) liver, not elsewhere classified; I10 Essential (primary) hypertension; R73.9 Hyperglycemia, unspecified; E78.5 Hyperlipidemia, unspecified; J30.9 Allergic rhinitis, unspecified; E66.3 Overweight; Z68.31 Body mass index [BMI] 31.0-31.9, adult; M54.50 Low back pain, unspecified; R60.9 Edema, unspecified; Z79.51 Long term (current) use of inhaled steroids; Z79.899 Other long term (current) drug therapy; Z88.1 Allergy status to other antibiotic agents; Z98.890 Other specified postprocedural states
CPT/HCPCS: 45385; 45380; 45381; 88305; J1596; J2371; J2704

== ENCOUNTER → 2024-08-05 10:58 | Outpatient (BNV) | payer BC, SELFPAY | PROVIDERS: PCP Internal Medicine; Visit Provider Internal Medicine Gastroenterology | DX: Z12.11 Encounter for screening for malignant neoplasm of colon (principal); Z80.0 Family history of malignant neoplasm of digestive organs; K63.5 Polyp of colon; R19.7 Diarrhea, unspecified; K57.90 Diverticulosis of intestine, part unspecified, without perforation or abscess without bleeding; K60.2 Anal fissure, unspecified | CPT/HCPCS: 45380; 45385 ==

== ENCOUNTER 2024-08-20 14:32 | Outpatient (AMB) | payer BC, SELFPAY ==
--- NOTE | 2024-08-20 14:36 | A.OFFVIS_ITS ---
Vital Signs 08/20/24 14:39 Height 5 ft 3 in Weight 178 lb 9.191 oz BMI 31.6 BP 121/61 Blood Pressure Location Lt brachial Position Sitting Pulse 72 Intake Visit Reasons: s/p colon Intake Note: Rebeca presents to in office follow up s/p colonoscopy. CC: Patient reports doing well and denies having any GI concerns today. 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 Allergies shrimp Allergy (Intermediate, Verified 08/20/24 14:44) unknown erythromycin base [From Erythrocin] Allergy (Mild, Verified 08/20/24 14:44) rash cat dander Allergy (Unknown, Verified 08/20/24 14:44) Unknown pollen extracts Allergy (Unknown, Verified 08/20/24 14:44) Unknown HPI HPI s/p colon: Details: Assessment & Plan (1) Pre-op examination: Code(s): Z01.818 - Encounter for other preprocedural examination (2) Colon cancer screening: Comment: Negative Cologuard April 2021 Code(s): Z12.11 - Encounter for screening for malignant neoplasm of colon (3) Colonoscopy refused: Comment: 11/11, Cologuard ordered Code(s): Z53.20 - Procedure and treatment not carried out because of patient's decision for unspecified reasons (4) Family history of colon cancer in mother: Comment: Maternal grandfather of colon cancer in his 50s to 60s mother at age 57 of COPD so likely would have had polyps Code(s): Z80.0 - Family history of malignant neoplasm of digestive organs Plan This is her first colonoscopy. She will have occasional RB on the TT bethany when she has diarrheal episodes wihch happens once a week BUT she also has some episodes of CIC. No known FHX of bowel problems. She has had food allergy testing in the past. There are no prior problems with anesthesia or sedation. She denies any cardiac or respiratory problems. No ID problems Her maternal grandfather had CRC in his 60's but was also a heavy smoker and drinker, she does not think her mother ever had a colonoscopy as she passed at age 57 from COPD. Orders: Orders Colonoscopy - GI Use Only Today Z01.818 - Encounter for other preprocedural examination Medications: New sodium,potassium,mag sulfates 17.5-3.13-1.6 gram (Suprep Bowel Prep Kit) 480 mL orally; 354 mL 0RF bisacodyl (Dulcolax (bisacodyl)) 10 mg (2 x 5 mg) PO BEDTIME 2 days 4 tabs 0RF COLONOSCOPY 08/05/24 Findings: Terminal Ileum: Not evaluated Cecum: An 8 to 9 mm flat polyp. Polyp was raised with 2 cc of Eleview (submucosal injection) and removed with a hot snare. 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 BIOPSY Received: 08/05/24 Diagnosis A. Colon, cecal polyp: Minute fragment of colonic mucosa with thermal artifact; no adenomatous dysplasia seen. B. Colon, right, biopsy: Colonic mucosa with no specific change; no colitis, granulomas or dysplasia. C. Colon, left, biopsy: Colonic mucosa with no specific change; no colitis, granulomas or dysplasia. TODAY'S VISIT Her maternal grandfather of crc, and we don't know if her mother would have had polyps as she of COPD at age 57. I recommend 5 year follow ups, but she really had trouble with the prep, and she states she would rather do a Cologuard with her PCP in the future to determine if she really needs colonoscopy going forward. The procedure was well tolerated. The results were explained and the patient was given the opportunity to ask questions. The bowel pattern has returned to normal. Education was provided to tell any 1st degree relatives about their findings to be sure that they are screened by age 45. Educated that they will be put on a recall list when it is time for their repeat scope but should they move out of state or away from the hospital they will need to remember along with their primary to repeat the procedure in a timely fashion to avoid any adverse complications. prn. [facility] Medical History Annual physical exam Hyperglycemia Hyperlipidemia Overweight Fatty liver (~10/20/23) Lower back pain Edema Allergic rhinitis Colonoscopy refused Normal Pap smear HTN (hypertension) Breast implant status Surgical History H/O colonoscopy S/P left breast implant History of removal of skin mole H/O removal of cyst Family History Father HTN (hypertension) Mother Skin cancer COPD (chronic obstructive pulmonary disease) Other Mental health disorder Substance use disorder Social History Household Members Other:: exercise 5 x a week, work at [employer], single, no children Housing: House Are you a primary critical care specialist to a significant other at home: No Do you presently have visiting nurse or other home services: No Patient Tobacco Use Status: Never used Tobacco e-Cigarette/Vaping Use: Never Used Second Hand Smoke Exposure: Yes (as a child, nothing recent ) Current occupational status: employed Cognitive needs: No Hearing needs: No Vision needs: Yes Review of Systems Const Denies fatigue, Denies fever(s), Denies night sweats, Denies poor appetite and Denies weight loss ENT Reports Normal hearing present, Denies dental pain, Denies dysphagia, Denies hearing loss, Denies mouth pain, Denies odynophagia, Denies throat swelling, Denies tongue swelling and Reports other (Dentition adequate) Card Reports no additional complaints Resp Reports no additional complaints GI Details: Denies abdominal pain, Denies melena, Denies bloating, Denies hematochezia, Denies constipation, Denies GI cramping, Denies dysphagia, Denies excessive flatus, Denies early satiety, Denies heartburn, Denies diarrhea, Denies nausea, Denies odynophagia, Denies vomiting and Denies hematemesis Skin/Breast Denies pruritus, Denies lesions, Denies rash and Denies jaundice Neuro Reports Normal hearing present and Denies Abnormal speech present Endo Denies fatigue Aller/Immun Denies throat swelling and Denies tongue swelling Physical Exam Vital Signs: Last Vital Signs Pulse 72 08/20/24 14:39 BP 121/61 08/20/24 14:39 BMI result Body Mass Index 31.6 Const General: cooperative, no acute distress, well developed and well groomed Nutritional Appearance: well nourished and obese Orientation/consciousness: oriented to person, oriented to place and oriented to time Limitations: No language barrier HEENT Head: Yes normocephalic and Yes atraumatic Eyes General: appearance normal, both eyes and all related structures Pupils: Equal, round and reactive pupils present Resp Effort & Inspection: normal respiratory effort and able to speak in complete sentences GI Inspection: No Abdominal panniculus present and Yes obesity Rectal Exam - Female: deferred Skin General skin exam: no rashes or lesions noted, turgor normal, skin not dry, no jaundice, No spider nevi and no striae Rashes: no rashes Nails: normal Neuro General: oriented to person, oriented to place and oriented to time Cranial nerves: Yes Equal, round and reactive pupils present and Yes Normal hearing present Speech: No Abnormal speech present Extrem General: Yes normal to inspection Psych Appearance: grossly normal and well kempt Mental Status: mental status grossly normal Speech and movement: Normal speech and movement present Affect: normal affect Attitude: cooperative Thought process: Normal thought process present and not confabulating Thought content: Normal thought content present Insight: Good insight present (Psych) Judgement: Good judgement present (Psych) Results Reviewed Results Reviewed: COLONOSCOPY 08/05/24 Findings: Terminal Ileum: Not evaluated Cecum: An 8 to 9 mm flat polyp. Polyp was raised with 2 cc of Eleview (submucosal injection) and removed with a hot snare. 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 BIOPSY Received: 08/05/24 Diagnosis A. Colon, cecal polyp: Minute fragment of colonic mucosa with thermal artifact; no adenomatous dysplasia seen. B. Colon, right, biopsy: Colonic mucosa with no specific change; no colitis, granulomas or dysplasia. C. Colon, left, biopsy: Colonic mucosa with no specific change; no colitis, granulomas or dysplasia. Assessment & Plan Assessment & Plan (1) Family history of colon cancer in mother: Comment: Maternal grandfather of colon cancer in his 50s to 60s mother at age 57 of COPD so likely would have had polyps Code(s): Z80.0 - Family history of malignant neoplasm of digestive organs Category: Medical (2) Colon cancer screening: Comment: Negative Cologuard April 2021 Code(s): Z12.11 - Encounter for screening for malignant neoplasm of colon Category: Medical Plan Her maternal grandfather of crc, and we don't know if her mother would have had polyps as she of COPD at age 57. I recommend 5 year follow ups, but she really had trouble with the prep, and she states she would rather do a Cologuard with her PCP in the future to determine if she really needs colonoscopy going forward. The procedure was well tolerated. The results were explained and the patient was given the opportunity to ask questions. The bowel pattern has returned to normal. Education was provided to tell any 1st degree relatives about their findings to be sure that they are screened by age 45. Educated that they will be put on a recall list when it is time for their repeat scope but should they move out of state or away from the hospital they will need to remember along with their primary to repeat the procedure in a timely fashion to avoid any adverse complications. prn. Coding Level of Care Code Est Pt Level 3 (20132) Diagnoses Family history of colon cancer in mother Z80.0 Colon cancer screening Z12.11
[2024-08-20 14:39] VITALS: BP 121/61; PULSE 72; BMI 31.6
== END 2024-08-20 14:50 | disposition home or self-care (01) ==
PROVIDERS: PCP Internal Medicine; Visit Provider Nurse Practitioner
DX: Z80.0 Family history of malignant neoplasm of digestive organs (principal); Z12.11 Encounter for screening for malignant neoplasm of colon
CPT/HCPCS: 99213

== ENCOUNTER → 2024-08-20 14:32 | Outpatient (BNVA) | payer BC, SELFPAY | PROVIDERS: PCP Internal Medicine; Visit Provider Nurse Practitioner ==

== ENCOUNTER 2024-10-15 06:20 | Outpatient (REF) | payer BC, SELFPAY ==
[2024-10-15 10:04] LABS: Baso%MD 0.5 %; Eos%MD 2.9 %; Hematocrit 38.1 % (37.0-47.0); Hemoglobin 13.4 g/dl (12.0-16.0); IG%MD 0.2 %; Lymph%MD 44.4 %; Mean Corpuscular HGB Conc 35.2 g/dl (31.0-35.0); Mean Corpuscular Hemoglobin 32.1 pg (27.0-33.0); Mean Corpuscular Volume 91.1 fL (80.0-98.0); Mean Platelet Volume 9.9 fL (9.4-12.3); Mono%MD 7.7 %; Neut%MD 44.3 %; Platelet Count 247 X10*3/uL (160-400); Red Blood Count 4.18 X10*6/uL (4.20-5.50); Red Cell Distribution Width 12.1 % (11.0-16.0); White Blood Count 4.1 X10*3/uL (4.8-10.8)
[2024-10-15 10:24] LABS: Alanine Aminotransferase 51 U/L (0-31); Albumin Level 4.2 g/dL (3.5-5.0); Alkaline Phosphatase 58 U/L (39-117); Anion Gap 14 (12-20); Aspartate Amino Transferase 32 U/L (5-31); Bilirubin Total 0.6 mg/dL (0.0-1.0); Blood Urea Nitrogen 18 mg/dL (9-16); Calcium 9.3 mg/dL (8.4-10.2); Carbon Dioxide 26 mmol/L (22-29); Chloride 102 mmol/L (96-108); Cholesterol 181 mg/dL (<200); Estimated Glomerular Filt Rate > 60; Glucose Fasting 127 mg/dL (60-99); HDL Cholesterol 73 mg/dL (>40); LDL Cholesterol Calculated 86 mg/dL (<100); Potassium 3.5 mmol/L (3.3-5.1); Sodium 138 mmol/L (135-145); Total Protein 6.8 g/dL (6.5-8.0); Triglycerides 114 mg/dL (<150)
[2024-10-15 10:29] LABS: Estimated Average Glucose 123 mg/dL; Hemoglobin A1C 137.7872 umol/L; Hemoglobin A1c % 5.9 % (<6.0); Total Hemoglobin (HGBA1C) 3406.3237 umol/L
[2024-10-15 10:45] LABS: TSH reflex Free T4 2.43 uIU/mL (0.32-4.0)
[2024-10-15 10:56] LABS: Atypical Lymphs Percent Manual 1 % (0-6); Creatinine Urine 125.36 mg/dL; Eosinophils Percent Manual 1 % (0-4); Folate 12.4 ng/mL (> or = 4.0); Lymphocytes Absolute Manual 1.8 X10*3/uL (1.2-4.9); Lymphocytes Percent Manual 43 % (20-40); Microalbum/Creatinine Ratio Ur 3.9 ug/mg cr (<30); Monocytes Absolute Manual 0.2 X10*3/uL (0.1-1.2); Monocytes Percent Manual 4 % (2-11); Neutrophils Percent Manual 51 % (45-73); Vitamin B12 251 pg/mL (200-900)
[2024-10-15 10:59] LABS: Burr Cells 1+ (0-2) /OIF; Platelet Estimate NORMAL (NORMAL); Platelet Morphology Comment NORMAL; RBC Morphology NOTED
[2024-10-15 11:14] LABS: Band Neutrophils Percent 0 % (3-5); Neutrophils Absolute Manual 2.1 X10*3/uL (2.0-8.3)
== END 2024-10-15 06:21 | disposition home or self-care (01) ==
LOC: HO.HMGCLDS 06:20
PROVIDERS: PCP Internal Medicine; Visit Provider Internal Medicine
DX: I10 Essential (primary) hypertension (principal); E78.5 Hyperlipidemia, unspecified; R73.9 Hyperglycemia, unspecified
CPT/HCPCS: 36415; 80053; 80061; 82043; 82570; 82607; 82746; 83036; 84443; 85007; 85027

== ENCOUNTER 2024-10-21 13:46 | Outpatient (AMB) | payer BC, SELFPAY ==
[2024-10-21 13:52] VITALS: BP 118/80; PULSE 73; O2SAT 99; BMI 32.2
--- NOTE | 2024-10-21 13:52 | MHC.PC.OV ---
Vital Signs 10/21/24 13:52 Height 5 ft 3 in Weight 182 lb BMI 32.2 BP 118/80 Blood Pressure Location Rt brachial Position Sitting Pulse 73 Pulse Source Pulse Oximeter Pulse Oximetry (%) 99 Oxygen Delivery Method Room Air Intake Visit Reasons: 8M F/U Intake Note: Pt is here today for her 8mo. f/u Allergies shrimp Allergy (Intermediate, Verified 02/04/25 08:19) unknown erythromycin base [From Erythrocin] Allergy (Mild, Verified 02/04/25 08:19) rash cat dander Allergy (Unknown, Verified 02/04/25 08:19) Unknown pollen extracts Allergy (Unknown, Verified 02/04/25 08:19) Unknown Medication List - Last Reconciled 10/21/24 by Catie Nassar MD amlodipine 5 mg PO DAILY atorvastatin (Lipitor) 20 mg PO DAILY cholecalciferol (vitamin D3) 50 mcg PO DAILY fluticasone propionate 50 mcg/actuation (Flonase Allergy Relief) 1 spray intranasal DAILY hydrochlorothiazide 25 mg PO DAILY lutein 20 mg PO DAILY metoprolol succinate ER 100 mg PO DAILY olmesartan 20 mg PO DAILY Tobacco use date assessed: 10/21/24 Dental Screening Dental Screen Date: 10/21/24 Did you have a dental visit in the last 12 months?: Yes Did you have a dental problem in the last 6 months where you did not have access to dental care?: No Was dental information given to patient?: Patient has dentist HPI 8M F/U HPI Details Pt presents for HTN, hyperlipid, hyperglycemia, stable on meds. [facility]MER[facility], [facility] Medical History (Updated 02/04/25 @ 08:50 by Qing Stokes PA-C) Acute upper respiratory infection Annual physical exam Hyperglycemia Hyperlipidemia Overweight Fatty liver (~10/20/23) Lower back pain Edema Allergic rhinitis Colonoscopy refused Normal Pap smear HTN (hypertension) Breast implant status Surgical History H/O colonoscopy S/P left breast implant History of removal of skin mole H/O removal of cyst Family History Father HTN (hypertension) Mother Skin cancer COPD (chronic obstructive pulmonary disease) Other Mental health disorder Substance use disorder Social History Household Members Other:: exercise 5 x a week, work at [employer], single, no children Housing: House Are you a primary child adolescent care to a significant other at home: No Do you presently have visiting nurse or other home services: No Patient Tobacco Use Status: Never used Tobacco e-Cigarette/Vaping Use: Never Used Second Hand Smoke Exposure: Yes (as a child, nothing recent ) Current occupational status: employed Cognitive needs: No Hearing needs: No Vision needs: Yes Questionnaire PHQ-9 Over the last 2 weeks, how often have you been bothered by any of the following problems? 1. Little interest or pleasure in doing things: not at all 2. Feeling down, depressed, or hopeless: not at all 3. Trouble falling or staying asleep, or sleeping too much: not at all 4. Feeling tired or having little energy: not at all 5. Poor appetite or overeating: not at all 6. Feeling bad about yourself - or that you are a failure or have let yourself or your family down: not at all 7. Trouble concentrating on things, such as reading the newspaper or watching television: not at all 8. Moving or speaking so slowly that other people could have noticed. Or the opposite - being so fidgety or restless that you have been moving around a lot more than usual: not at all 9. Thoughts that you would be better off or of hurting yourself in some way: not at all Total score: 0 Depression Screening Interpretation: Negative Depression Screening Done: Yes 45054 - PHQ-9 Billing: Yes Source: Developed by Drs. Sin Thompson, Maria G Green, Kevin Stallings and colleagues, with an educational murray from [employer]. Thrive Questionnaire Date Thrive assessed: 10/15/24 I am a: Patient What is your living situation today?: I have a steady place to live Within the past 12 months, did the food you bought not last and you didn't have the money to get more?: Never true Within the past 12 months, did you worry whether your food would run out before you got money to buy more?: Never true Do you have trouble paying for medicines?: No Do you have trouble getting transportation to medical appointments?: No Do you have trouble paying your heating and electricity bill?: No Do you have trouble taking care of your child, family member or friend?: No Do you have trouble with day-to-day activities such as bathing, preparing meals, shopping, managing finances, etc.?: No Are you currently unemployed and looking for a job?: No Are you interested in more education?: No Please select the resources that you would like help with: None Currently or been in a relationship where the following occur: No concerns reported THRIVE Score: 0 AUDIT C Alcohol Use Questionnaire (AUDIT-C) 1. How often do you have a drink containing alcohol?: 2-3 times a week 2. How many drinks containing alcohol do you have on a typical day when you are drinking?: 1 or 2 3. How often do you have six or more drinks on one occasion?: Never Total Score: 3 LEAH-7 AMB Questionnaire LEAH-7 Date LEAH - 7 assessed: 02/19/24 Feeling nervous, anxious, or on edge: 0 = Not at all Not being able to stop or control worryin = Not at all Worrying too much about different things: 0 = Not at all Trouble relaxin = Not at all Being so restless that it is hard to sit still: 0 = Not at all Becoming easily annoyed or irritable: 0 = Not at all Feeling afraid as if something awful might happen: 0 = Not at all Total LEAH-7 score (0-4 normal; 5-9 mild; 10-14 moderate; 15-21 severe): 0 Source: Developed by Drs. Sin Thompson, Maria G Green, Kevin Stallings and colleagues, with an educational murray from [employer]. Review of Systems Const All systems reviewed & are unremarkable except as noted in HPI and below Eyes Reports no additional complaints ENT Reports no additional complaints Card Reports no additional complaints Resp Reports no additional complaints GI Reports no additional complaints Reports no additional complaints Physical exam (Primary Care) Vital Signs: Last Vital Signs Pulse 73 10/21/24 13:52 BP 118/80 10/21/24 13:52 Pulse Ox 99 10/21/24 13:52 Oxygen Delivery Method Room Air 10/21/24 13:52 BMI result Body Mass Index 32.2 Tobacco/Smoking Status: Tobacco use Status Tobacco use date assessed 10/21/24 10/21/24 13:56 Patient Tobacco Use Status Never used Tobacco 10/21/24 13:53 e-Cigarette/Vaping Use Never Used 10/21/24 13:53 PHQ-9: PHQ-9 Score PHQ-9: Total score 0 10/21/24 14:17 Depression Screening Interpretation: Negative Thrive Assessment: Date of Thrive Assessment Date Thrive assessed 10/15/24 10/21/24 13:53 Currently or been in a relationship where the following occur: No concerns reported Const General: no acute distress HENMT Head: Yes normal to inspection Ears: hearing grossly normal bilaterally Face and sinus: Yes normal facial exam Mouth: Normal oral and palatal mucosa present Throat: Yes posterior oropharynx normal Eyes General: appearance normal, both eyes and all related structures Neck Neck: Yes no lymphadenopathy and Yes supple Resp Effort & Inspection: normal respiratory effort Auscultation: clear to auscultation bilaterally Cardio Rhythm: regular rhythm Heart sounds: S1 normal heart sound present and S2 normal heart sound present GI Inspection: Yes normal to inspection Palpation (GI): Soft to palpation Percussion: Yes normal to percussion Auscultation: normal bowel sounds Coding Level of Care Code Est Pt Level 4 (25932) Diagnoses Hyperlipidemia E78.5 Hyperglycemia R73.9 Primary hypertension I10 Hypertension type: primary hypertension Additional Codes PHQ-9 - 78923 - PHQ-9 Billing: Yes ([id number]) Assessment & Plan Assessment & Plan (1) Hyperlipidemia: Code(s): E78.5 - Hyperlipidemia, unspecified Category: Medical Plan: cont Lipitor (2) Hyperglycemia: Code(s): R73.9 - Hyperglycemia, unspecified Category: Medical Plan: ADA diet increase physical activity weight loss discussed with the patient we will monitor A1c (3) HTN (hypertension): Code(s): I10 - Essential (primary) hypertension Category: Medical Qualifiers: Hypertension type: primary hypertension Qualified Code(s): I10 - Essential (primary) hypertension Plan: Continue current medications Orders: Orders Complete Blood Count Auto Diff 6 Months R73.9 - Hyperglycemia, unspecified, E78.5 - Hyperlipidemia, unspecified, I10 - Essential (primary) hypertension TSH reflex Free T4 6 Months R73.9 - Hyperglycemia, unspecified, E78.5 - Hyperlipidemia, unspecified, I10 - Essential (primary) hypertension Hemoglobin A1c 6 Months R73.9 - Hyperglycemia, unspecified, E78.5 - Hyperlipidemia, unspecified, I10 - Essential (primary) hypertension Microalbumin, Random (w Creat) 6 Months R73.9 - Hyperglycemia, unspecified, E78.5 - Hyperlipidemia, unspecified, I10 - Essential (primary) hypertension Lipid Panel 6 Months R73.9 - Hyperglycemia, unspecified, E78.5 - Hyperlipidemia, unspecified, I10 - Essential (primary) hypertension Comprehensive [place]. Panel Fast 6 Months R73.9 - Hyperglycemia, unspecified, E78.5 - Hyperlipidemia, unspecified, I10 - Essential (primary) hypertension Medications: Refilled amlodipine 5 mg PO DAILY 90 tabs 3RF atorvastatin (Lipitor) 20 mg PO DAILY 90 tabs 3RF hydrochlorothiazide 25 mg PO DAILY 90 tabs 3RF metoprolol succinate ER 100 mg PO DAILY 90 tabs 3RF olmesartan 20 mg PO DAILY 90 tabs 3RF
== END 2024-10-21 14:28 | disposition home or self-care (01) ==
PROVIDERS: PCP Internal Medicine; Visit Provider Internal Medicine
DX: E78.5 Hyperlipidemia, unspecified (principal); R73.9 Hyperglycemia, unspecified; I10 Essential (primary) hypertension

== ENCOUNTER 2025-02-04 08:02 | Outpatient (REF) | payer OTHER, SELFPAY ==
--- NOTE | ~2025-02-04 | XR_ITS ---
EXAMINATION: XR CHEST 2 VIEWS HISTORY: J06.9 - Acute upper respiratory infection, unspecified COMPARISON: There are no prior studies for comparison. FINDINGS: PA and lateral views of the chest are submitted. There is linear scarring in the left lower lobe. The lungs are otherwise clear. There is no pleural effusion, pneumothorax, or pulmonary vascular congestion. The heart is normal in size. The bones are intact. XR/XR chest 2V IMPRESSION: Left lower lobe scarring. The lungs are otherwise clear. Electronically signed by: Sin Morrison MD 02/04/2025 08:49 AM EDT
== END 2025-02-04 08:03 | disposition home or self-care (01) ==
LOC: HO.HMGCX 08:02
PROVIDERS: PCP Internal Medicine; Visit Provider Physician Assistant
DX: J06.9 Acute upper respiratory infection, unspecified (principal)
CPT/HCPCS: 71046

== ENCOUNTER 2025-02-04 08:02 | Outpatient (AMB) | payer OTHER, SELFPAY ==
[2025-02-04 08:17] VITALS: BP 138/82; PULSE 83; TEMP 36.7; O2SAT 98; BMI 31.7
--- NOTE | 2025-02-04 08:17 | MHC.OFFWIV ---
Intake Vital Signs 02/04/25 08:17 Height 5 ft 3 in Weight 179 lb 2 oz BMI 31.7 BP 138/82 Blood Pressure Location Lt brachial Position Sitting Pulse 83 Pulse Source Pulse Oximeter Temp 98.0 F Temp Source Oral Pulse Oximetry (%) 98 Oxygen Delivery Method Room Air Intake Visit Reasons: EP cold, cough Intake Note: Pt presents to the office today for c/o cold symptoms and a lingering cough x3 days. Patient Tobacco Use Status: Never used Tobacco Allergies shrimp Allergy (Intermediate, Verified 02/04/25 08:19) unknown erythromycin base [From Erythrocin] Allergy (Mild, Verified 02/04/25 08:19) rash cat dander Allergy (Unknown, Verified 02/04/25 08:19) Unknown pollen extracts Allergy (Unknown, Verified 02/04/25 08:19) Unknown HPI HPI Comments History of Present Illness Details This is a 64-year-old female with a past medical history of hypertension hyperlipidemia presenting for evaluation of a cough that she has had for the past 3 weeks. Patient states that she had a sinus infection approximately 2 and half weeks ago and those symptoms has resolved but she continues to have a cough that is worse at night. Patient denies having any fevers, chills, chest pain or overt shortness for breath. Patient has been taking Coricidin OTC for her treatment of her cough. [facility] Medical History Annual physical exam Hyperglycemia Hyperlipidemia Overweight Fatty liver (~10/20/23) Lower back pain Edema Allergic rhinitis Colonoscopy refused Normal Pap smear HTN (hypertension) Breast implant status Surgical History H/O colonoscopy S/P left breast implant History of removal of skin mole H/O removal of cyst Family History Father HTN (hypertension) Mother Skin cancer COPD (chronic obstructive pulmonary disease) Other Mental health disorder Substance use disorder Social History Household Members Other:: exercise 5 x a week, work at [employer], single, no children Housing: House Are you a primary team primary care physician to a significant other at home: No Do you presently have visiting nurse or other home services: No Patient Tobacco Use Status: Never used Tobacco e-Cigarette/Vaping Use: Never Used Second Hand Smoke Exposure: Yes (as a child, nothing recent ) Current occupational status: employed Cognitive needs: No Hearing needs: No Vision needs: Yes Review of Systems Const All systems reviewed & are unremarkable except as noted in HPI and below Eyes Reports no additional complaints ENT Reports no additional complaints Card Reports no additional complaints, Denies chest pain, Denies dyspnea and Denies dyspnea on exertion Resp Reports chest congestion, Reports cough, Denies hemoptysis, Denies pain with cough, Denies dyspnea, Denies dyspnea on exertion and Denies wheezing GI Reports no additional complaints Reports no additional complaints Musc Reports no additional complaints Skin/Breast Reports system reviewed and no additional complaints, except as documented Neuro Reports no additional complaints Psych Reports no additional complaints Aden/Lymph Reports no additional complaints Aller/Immun Reports no additional complaints and Denies wheezing Physical Exam Vital Signs: Last Vital Signs Temp 98.0 F 02/04/25 08:17 Pulse 83 02/04/25 08:17 BP 138/82 02/04/25 08:17 Pulse Ox 98 02/04/25 08:17 Oxygen Delivery Method Room Air 02/04/25 08:17 BMI result Body Mass Index 31.7 Const General: cooperative, healthy appearing, comfortable, no acute distress, well developed, alert, awake and Physically active; No acute distress Nutritional Appearance: overweight Orientation/consciousness: patient oriented x3 Limitations: no limitations HEENT Head: Yes normal to inspection Ears: hearing grossly normal bilaterally, external ears normal and EAC's normal General nose exam: Normal external nose present Face and sinus: Yes normal facial exam Mouth: Normal oral and palatal mucosa present Throat: Yes posterior oropharynx normal and No postnasal drainage Eyes General: appearance normal, both eyes and all related structures Neck Lymphatic: no lymphadenopathy noted Resp Effort & Inspection: normal respiratory effort, able to speak in complete sentences, no audible wheezes, no cough, respiratory effort not decreased and not tachypneic Auscultation: rhonchi right lower Cardio Rate: regular rate Rhythm: regular rhythm Skin General skin exam: no rashes or lesions noted Neuro General: patient oriented x3 Psych Appearance: grossly normal Mental Status: mental status grossly normal Insight: Good insight present (Psych) Judgement: Good judgement present (Psych) Results Reviewed Results Reviewed: CXR -- no acute findings Assessment & Plan Assessment & Plan (1) Acute upper respiratory infection: Comment: No acute findings noted on chest x-ray. Patient is afebrile and is not tachypneic or hypoxic. Code(s): J06.9 - Acute upper respiratory infection, unspecified Plan: Tessalon Perles t.i.d. p.r.n. and Mucinex OTC with increased clear fluids daily. Patient will follow up with her primary care physician as needed. Orders: Orders XR chest 2V Today J06.9 - Acute upper respiratory infection, unspecified Medications: New benzonatate 100 mg PO TID 20 caps 0RF Coding Level of Care Code Est Pt Level 3 (53152) Diagnoses Acute upper respiratory infection J06.9
== END 2025-02-04 08:57 | disposition home or self-care (01) ==
PROVIDERS: PCP Internal Medicine; Visit Provider Physician Assistant
DX: J06.9 Acute upper respiratory infection, unspecified (principal)

== ENCOUNTER → 2025-02-04 08:33 | Outpatient (BNV) | payer OTHER, SELFPAY | PROVIDERS: PCP Internal Medicine; Visit Provider Radiology Diagnostic Radiology | DX: J06.9 Acute upper respiratory infection, unspecified (principal); J84.10 Pulmonary fibrosis, unspecified | CPT/HCPCS: 71046 ==

== ENCOUNTER 2025-04-22 06:27 | Outpatient (REF) | payer OTHER, SELFPAY ==
[2025-04-22 10:20] LABS: MANUAL DIFF FLAG NO
[2025-04-22 10:46] LABS: Basophils Percent Auto 0.2 % (0-2); Eosinophils Absolute Auto 0.1 X10*3/uL (0.0-0.4); Hematocrit 38.8 % (37.0-47.0); Hemoglobin 13.6 g/dl (12.0-16.0); Imm Gran Abs Auto 0.01 X10*3/uL (0.00-0.03); Imm Gran Pct Auto 0.2 % (0.0-0.4); Lymphocytes Absolute Auto 2.1 X10*3/uL (1.2-4.9); Lymphocytes Percent Auto 46.5 % (20-40); Mean Corpuscular HGB Conc 35.1 g/dl (31.0-35.0); Mean Corpuscular Hemoglobin 31.7 pg (27.0-33.0); Mean Corpuscular Volume 90.4 fL (80.0-98.0); Mean Platelet Volume 10.2 fL (9.4-12.3); Monocytes Absolute Auto 0.3 X10*3/uL (0.1-1.2); Monocytes Percent Auto 7.4 % (2-11); Neutrophils Percent Auto 43.7 % (45-73); Platelet Count 235 X10*3/uL (160-400); Red Blood Count 4.29 X10*6/uL (4.20-5.50); Red Cell Distribution Width 11.9 % (11.0-16.0); White Blood Count 4.5 X10*3/uL (4.8-10.8)
[2025-04-22 10:54] LABS: Estimated Average Glucose 120 mg/dL; Hemoglobin A1c % 5.8 % (<6.0)
[2025-04-22 11:31] LABS: Alanine Aminotransferase 38 U/L (0-31); Albumin Level 4.4 g/dL (3.5-5.0); Alkaline Phosphatase 55 U/L (39-117); Anion Gap 12 (12-20); Aspartate Amino Transferase 30 U/L (5-31); Bilirubin Total 0.8 mg/dL (0.0-1.0); Blood Urea Nitrogen 27 mg/dL (9-16); Calcium 9.4 mg/dL (8.4-10.2); Carbon Dioxide 28 mmol/L (22-29); Chloride 103 mmol/L (96-108); Cholesterol 183 mg/dL (<200); Estimated Glomerular Filt Rate > 60; Glucose Fasting 116 mg/dL (60-99); HDL Cholesterol 66 mg/dL (>40); LDL Cholesterol Calculated 97 mg/dL (<100); Potassium 3.6 mmol/L (3.3-5.1); Sodium 139 mmol/L (135-145); Total Protein 6.9 g/dL (6.5-8.0); Triglycerides 103 mg/dL (<150)
[2025-04-22 11:35] LABS: TSH reflex Free T4 2.31 uIU/mL (0.32-4.0)
[2025-04-22 11:48] LABS: Creatinine Urine 120.56 mg/dL; Microalbum/Creatinine Ratio Ur 5.8 ug/mg cr (<30)
== END 2025-04-22 06:28 | disposition home or self-care (01) ==
LOC: HO.HMGCLDS 06:27
PROVIDERS: PCP Internal Medicine; Visit Provider Internal Medicine
DX: I10 Essential (primary) hypertension (principal); E78.5 Hyperlipidemia, unspecified; R73.9 Hyperglycemia, unspecified
CPT/HCPCS: 36415; 80053; 80061; 82043; 82570; 83036; 84443; 85025

== ENCOUNTER 2025-04-28 12:40 | Outpatient (AMB) | payer OTHER, SELFPAY ==
--- NOTE | 2025-04-28 13:56 | MHC.PC.OV ---
Vital Signs 04/28/25 13:57 Height 5 ft 3 in Weight 174 lb BMI 30.8 BP 110/70 Blood Pressure Location Lt brachial Position Sitting Respiration 20 Pulse 77 Pulse Source Pulse Oximeter Temp 98.0 F Temp Source Oral Pulse Oximetry (%) 98 Oxygen Delivery Method Room Air Intake Visit Reasons: 6 months f/up Intake Note: Pt is here today for 6 months follow up visit. Allergies shrimp Allergy (Intermediate, Verified 04/28/25 13:59) unknown erythromycin base [From Erythrocin] Allergy (Mild, Verified 04/28/25 13:59) rash cat dander Allergy (Unknown, Verified 04/28/25 13:59) Unknown pollen extracts Allergy (Unknown, Verified 04/28/25 13:59) Unknown Medication List - Last Reconciled 04/28/25 by Catie Nassar MD amlodipine 5 mg PO DAILY atorvastatin (Lipitor) 20 mg PO DAILY cholecalciferol (vitamin D3) 50 mcg PO DAILY fluticasone propionate 50 mcg/actuation (Flonase Allergy Relief) 1 spray intranasal DAILY hydrochlorothiazide 25 mg PO DAILY lutein 20 mg PO DAILY metoprolol succinate ER 100 mg PO DAILY olmesartan 20 mg PO DAILY Tobacco use date assessed: 04/28/25 Fall risk assessment: No Falls in past year Last assessed Fall Risk: 04/28/25 Dental Screening Dental Screen Date: 04/28/25 Did you have a dental visit in the last 12 months?: Yes Did you have a dental problem in the last 6 months where you did not have access to dental care?: No Was dental information given to patient?: Patient has dentist HPI 6 months f/up HPI Details Pt presents for F/u HTN, hyperlipid, stable on current medications. She retired from her job. [facility] Medical History (Updated 04/28/25 @ 16:09 by Catie Nassar MD) Acute upper respiratory infection Annual physical exam Hyperglycemia Hyperlipidemia Overweight Fatty liver (~10/20/23) Lower back pain Edema Allergic rhinitis Colonoscopy refused Normal Pap smear HTN (hypertension) Breast implant status Surgical History (Updated 04/28/25 @ 14:21 by Catie Nassar MD) H/O colonoscopy S/P left breast implant History of removal of skin mole H/O removal of cyst Family History Father HTN (hypertension) Mother Skin cancer COPD (chronic obstructive pulmonary disease) Other Mental health disorder Substance use disorder Social History Household Members Other:: exercise 5 x a week, work at [employer], single, no children Housing: House Are you a primary medicare sales representative to a significant other at home: No Do you presently have visiting nurse or other home services: No Patient Tobacco Use Status: Never used Tobacco e-Cigarette/Vaping Use: Never Used Second Hand Smoke Exposure: Yes (as a child, nothing recent ) service: No Current occupational status: employed Cognitive needs: No Hearing needs: No Vision needs: Yes Questionnaire PHQ-9 Over the last 2 weeks, how often have you been bothered by any of the following problems? 1. Little interest or pleasure in doing things: not at all 2. Feeling down, depressed, or hopeless: not at all 3. Trouble falling or staying asleep, or sleeping too much: not at all 4. Feeling tired or having little energy: not at all 5. Poor appetite or overeating: not at all 6. Feeling bad about yourself - or that you are a failure or have let yourself or your family down: not at all 7. Trouble concentrating on things, such as reading the newspaper or watching television: not at all 8. Moving or speaking so slowly that other people could have noticed. Or the opposite - being so fidgety or restless that you have been moving around a lot more than usual: not at all 9. Thoughts that you would be better off or of hurting yourself in some way: not at all Total score: 0 Depression Screening Interpretation: Negative Depression Screening Done: Yes 02034 - PHQ-9 Billing: Yes Source: Developed by Drs. Sin Thompson, Maria G Green, Kevin Stallings and colleagues, with an educational murray from [employer]. Thrive Questionnaire Date Thrive assessed: 04/28/25 I am a: Patient What is your living situation today?: I have a steady place to live Within the past 12 months, did the food you bought not last and you didn't have the money to get more?: Never true Within the past 12 months, did you worry whether your food would run out before you got money to buy more?: Never true Do you have trouble paying for medicines?: No Do you have trouble getting transportation to medical appointments?: No Do you have trouble paying your heating and electricity bill?: No Do you have trouble taking care of your child, family member or friend?: No Do you have trouble with day-to-day activities such as bathing, preparing meals, shopping, managing finances, etc.?: No Are you currently unemployed and looking for a job?: No Are you interested in more education?: No Please select the resources that you would like help with: None Currently or been in a relationship where the following occur: No concerns reported THRIVE Score: 0 AUDIT C Alcohol Use Questionnaire (AUDIT-C) 1. How often do you have a drink containing alcohol?: 2-3 times a week 2. How many drinks containing alcohol do you have on a typical day when you are drinking?: 1 or 2 3. How often do you have six or more drinks on one occasion?: Never Total Score: 3 LEAH-7 AMB Questionnaire LEAH-7 Date LEAH - 7 assessed: 04/28/25 Feeling nervous, anxious, or on edge: 0 = Not at all Not being able to stop or control worryin = Not at all Worrying too much about different things: 0 = Not at all Trouble relaxin = Not at all Being so restless that it is hard to sit still: 0 = Not at all Becoming easily annoyed or irritable: 0 = Not at all Feeling afraid as if something awful might happen: 0 = Not at all Total LEAH-7 score (0-4 normal; 5-9 mild; 10-14 moderate; 15-21 severe): 0 Source: Developed by Drs. Sin Thompson, Maria G Green, Kevin Stallings and colleagues, with an educational murray from [employer]. LEAH-7 Assessment Billing LEAH-7 Assessment Tool: LEAH-7 Assessment 59179 Review of Systems Const All systems reviewed & are unremarkable except as noted in HPI and below Eyes Reports no additional complaints ENT Reports no additional complaints Card Reports no additional complaints Resp Reports no additional complaints GI Reports no additional complaints Reports no additional complaints Physical exam (Primary Care) Vital Signs: Last Vital Signs Temp 98.0 F 04/28/25 13:57 Pulse 77 04/28/25 13:57 Resp 20 04/28/25 13:57 BP 110/70 04/28/25 13:57 Pulse Ox 98 04/28/25 13:57 Oxygen Delivery Method Room Air 04/28/25 13:57 BMI result Body Mass Index 30.8 Tobacco/Smoking Status: Tobacco use Status Tobacco use date assessed 04/28/25 04/28/25 14:03 Patient Tobacco Use Status Never used Tobacco 04/28/25 13:57 e-Cigarette/Vaping Use Never Used 04/28/25 13:57 PHQ-9: PHQ-9 Score PHQ-9: Total score 0 04/28/25 14:18 Depression Screening Interpretation: Negative Thrive Assessment: Date of Thrive Assessment Date Thrive assessed 04/28/25 04/28/25 14:03 Currently or been in a relationship where the following occur: No concerns reported Const General: no acute distress HENMT Head: Yes normal to inspection Neck Neck: Yes supple Resp Effort & Inspection: normal respiratory effort Auscultation: clear to auscultation bilaterally Cardio Rate: regular rate Rhythm: regular rhythm Heart sounds: S1 normal heart sound present and S2 normal heart sound present GI Inspection: Yes normal to inspection Palpation (GI): Soft to palpation Percussion: Yes normal to percussion Auscultation: normal bowel sounds Coding Level of Care Code Est Pt Level 4 (57402) Complex EM visit Add On G2211 Diagnoses Primary hypertension I10 Hypertension type: primary hypertension Hyperlipidemia E78.5 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 Hyperglycemia R73.9 Vitamin D deficiency E55.9 Additional Codes LEAH-7 Assessment Billing - LEAH-7 Assessment Tool: LEAH-7 Assessment 25666 ([id number]) PHQ-9 - 35085 - PHQ-9 Billing: Yes ([id number]) Assessment & Plan Assessment & Plan (1) HTN (hypertension): Code(s): I10 - Essential (primary) hypertension Category: Medical Qualifiers: Hypertension type: primary hypertension Qualified Code(s): I10 - Essential (primary) hypertension Plan: Continue current medications (2) Hyperlipidemia: Code(s): E78.5 - Hyperlipidemia, unspecified Category: Medical Plan: Continue statin (3) 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 Panel Fast 6 Months E55.9 - Vitamin D deficiency, unspecified, E78.5 - Hyperlipidemia, unspecified, I10 - Essential (primary) hypertension, R73.9 - Hyperglycemia, unspecified Complete Blood Count Auto Diff 6 Months E55.9 - Vitamin D deficiency, unspecified, E78.5 - Hyperlipidemia, unspecified, I10 - Essential (primary) hypertension, R73.9 - Hyperglycemia, unspecified Lipid Panel 6 Months E55.9 - Vitamin D deficiency, unspecified, E78.5 - Hyperlipidemia, unspecified, I10 - Essential (primary) hypertension, R73.9 - Hyperglycemia, unspecified Vitamin D 25-OH Total 6 Months E55.9 - Vitamin D deficiency, unspecified, E78.5 - Hyperlipidemia, unspecified, I10 - Essential (primary) hypertension, R73.9 - Hyperglycemia, unspecified Hemoglobin A1c 6 Months E55.9 - Vitamin D deficiency, unspecified, E78.5 - Hyperlipidemia, unspecified, I10 - Essential (primary) hypertension, R73.9 - Hyperglycemia, unspecified TSH reflex Free T4 6 Months E55.9 - Vitamin D deficiency, unspecified, E78.5 - Hyperlipidemia, unspecified, I10 - Essential (primary) hypertension, R73.9 - Hyperglycemia, unspecified Medications: New estradiol 0.01%(0.1mg/gram) 1 g vaginal 3XW 42.5 grams 4RF Refilled amlodipine 5 mg PO DAILY 90 tabs 3RF atorvastatin (Lipitor) 20 mg PO DAILY 90 tabs 3RF hydrochlorothiazide 25 mg PO DAILY 90 tabs 3RF olmesartan 20 mg PO DAILY 90 tabs 3RF metoprolol succinate ER 100 mg PO DAILY 90 tabs 3RF
[2025-04-28 13:57] VITALS: BP 110/70; PULSE 77; RESP 20; TEMP 36.7; O2SAT 98; BMI 30.8
== END 2025-04-28 14:30 | disposition home or self-care (01) ==
LOC: HO.HMCC 12:41
PROVIDERS: PCP Internal Medicine; Visit Provider Internal Medicine
DX: I10 Essential (primary) hypertension (principal); E78.5 Hyperlipidemia, unspecified; N95.2 Postmenopausal atrophic vaginitis; R73.9 Hyperglycemia, unspecified; E55.9 Vitamin D deficiency, unspecified

== ENCOUNTER → 2025-04-28 12:40 | Outpatient (BNVA) | payer OTHER, SELFPAY | PROVIDERS: PCP Internal Medicine; Visit Provider Internal Medicine | DX: I10 Essential (primary) hypertension (principal); E78.5 Hyperlipidemia, unspecified; N95.2 Postmenopausal atrophic vaginitis; R73.9 Hyperglycemia, unspecified; E55.9 Vitamin D deficiency, unspecified; Z79.899 Other long term (current) drug therapy; Z13.31 Encounter for screening for depression; Z13.30 Encounter for screening examination for mental health and behavioral disorders, unspecified | CPT/HCPCS: 96127 ==

== ENCOUNTER 2025-10-24 06:47 | Outpatient (REF) | payer MEDICARE, SELFPAY ==
[2025-10-24 10:13] LABS: MANUAL DIFF FLAG NO
[2025-10-24 10:25] LABS: Hematocrit 38.8 % (37.0-47.0); Hemoglobin 13.4 g/dl (12.0-16.0); Imm Gran Abs Auto 0.02 X10*3/uL (0.00-0.03); Imm Gran Pct Auto 0.5 % (0.0-0.4); Lymphocytes Absolute Auto 1.7 X10*3/uL (1.2-4.9); Mean Corpuscular HGB Conc 34.5 g/dl (31.0-35.0); Mean Corpuscular Hemoglobin 31.4 pg (27.0-33.0); Mean Corpuscular Volume 90.9 fL (80.0-98.0); NRBC Abs Auto 0.000 X10*3/uL (0.0-0.012); NRBC Pct Auto 0.0 /100WBC (0.0-0.2); Platelet Count 272 X10*3/uL (160-400); Red Blood Count 4.27 X10*6/uL (4.20-5.50); White Blood Count 4.2 X10*3/uL (4.8-10.8)
[2025-10-24 10:50] LABS: Alanine Aminotransferase 39 U/L (0-31); Albumin Level 4.5 g/dL (3.5-5.0); Alkaline Phosphatase 61 U/L (39-117); Anion Gap 10 (12-20); Aspartate Amino Transferase 30 U/L (5-31); Blood Urea Nitrogen 24 mg/dL (9-16); Calcium 9.4 mg/dL (8.4-10.2); Carbon Dioxide 28 mmol/L (22-29); Chloride 105 mmol/L (96-108); Cholesterol 187 mg/dL (<200); Estimated Glomerular Filt Rate > 60; HDL Cholesterol 71 mg/dL (>40); Potassium 3.4 mmol/L (3.3-5.1); Sodium 140 mmol/L (135-145); Total Protein 7.1 g/dL (6.5-8.0); Triglycerides 96 mg/dL (<150)
== END 2025-10-24 06:48 | disposition home or self-care (01) ==
LOC: HO.HMGCLDS 06:47
PROVIDERS: PCP Internal Medicine; Visit Provider Internal Medicine
DX: I10 Essential (primary) hypertension (principal); E55.9 Vitamin D deficiency, unspecified; E78.5 Hyperlipidemia, unspecified; R73.9 Hyperglycemia, unspecified
CPT/HCPCS: 36415; 80053; 80061; 82306; 83036; 84443; 85025

== ENCOUNTER 2025-10-29 09:02 | Outpatient (AMB) | payer MEDICARE, SELFPAY ==
--- NOTE | 2025-10-29 09:15 | MHC.PC.OV ---
Vital Signs 10/29/25 09:33 Height 5 ft 3 in Weight 169 lb BMI 29.9 BP 116/76 Blood Pressure Location Lt brachial Position Sitting Respiration 17 Pulse 73 Pulse Source Pulse Oximeter Temp 98.0 F Temp Source Oral Pulse Oximetry (%) 98 Oxygen Delivery Method Room Air Intake Visit Reasons: 6 months f/up Intake Note: Pt is here today for 6 months follow up visit. Allergies shrimp Allergy (Intermediate, Verified 10/29/25 09:44) unknown erythromycin base (From Erythrocin) Allergy (Mild, Verified 10/29/25 09:44) rash cat dander Allergy (Unknown, Verified 10/29/25 09:44) Unknown pollen extracts Allergy (Unknown, Verified 10/29/25 09:44) Unknown Medication List - Last Reconciled 10/29/25 by Catie Nassar MD amlodipine 5 mg PO DAILY atorvastatin (Lipitor) 20 mg PO DAILY cholecalciferol (vitamin D3) 50 mcg PO DAILY estradiol 0.01%(0.1mg/gram) 1 g vaginal 3XW fluticasone propionate 50 mcg/actuation (Flonase Allergy Relief) 1 spray intranasal DAILY hydrochlorothiazide 25 mg PO DAILY lutein 20 mg PO DAILY metoprolol succinate ER 100 mg PO DAILY olmesartan 20 mg PO DAILY Tobacco use date assessed: 10/29/25 Fall risk assessment: No Falls in past year Last assessed Fall Risk: 10/29/25 Dental Screening Dental Screen Date: 04/28/25 HPI 6 months f/up HPI Details Pt presents for f/u HTN, hyperlipid, stable on meds. Pt reports being under a lot of stress related to her sister diagnosed with dementia. Pt reports episodes of chest tightness lasting up to 5 minutes not related to physical activity but when patient is stressed out and anxious. She exercise occasionally up to twice a week. Patient used to take citalopram which was helpful for the anxiety. Patient denies depression insomnia suicide ideation PFSH Medical History Acute upper respiratory infection Annual physical exam Hyperglycemia Hyperlipidemia Overweight Fatty liver (~10/20/23) Lower back pain Edema Allergic rhinitis Colonoscopy refused Normal Pap smear HTN (hypertension) Breast implant status Surgical History H/O colonoscopy S/P left breast implant History of removal of skin mole H/O removal of cyst Family History Father HTN (hypertension) Mother Skin cancer COPD (chronic obstructive pulmonary disease) Other Mental health disorder Substance use disorder Social History Household Members Other:: exercise 5 x a week, work at [employer], single, no children Housing: House Are you a primary certified social workers in health care to a significant other at home: No Do you presently have visiting nurse or other home services: No Patient Tobacco Use Status: Never used Tobacco e-Cigarette/Vaping Use: Never Used Second Hand Smoke Exposure: Yes (as a child, nothing recent ) service: No Current occupational status: employed Cognitive needs: No Hearing needs: No Vision needs: Yes Questionnaire Thrive Questionnaire Date Thrive assessed: 04/28/25 I am a: Patient What is your living situation today?: I have a steady place to live Within the past 12 months, did the food you bought not last and you didn't have the money to get more?: Never true Within the past 12 months, did you worry whether your food would run out before you got money to buy more?: Never true Do you have trouble paying for medicines?: No Do you have trouble getting transportation to medical appointments?: No Do you have trouble paying your heating and electricity bill?: No Do you have trouble taking care of your child, family member or friend?: No Do you have trouble with day-to-day activities such as bathing, preparing meals, shopping, managing finances, etc.?: No Are you currently unemployed and looking for a job?: No Are you interested in more education?: No Please select the resources that you would like help with: None Currently or been in a relationship where the following occur: No concerns reported THRIVE Score: 0 LEAH-7 AMB Questionnaire ELAH-7 Date LEAH - 7 assessed: 04/28/25 Source: Developed by Drs. Sin Thompson, Maria G Green, Kevin Stallings and colleagues, with an educational murray from [employer] Review of Systems Const All systems reviewed & are unremarkable except as noted in HPI and below Eyes Reports no additional complaints Card Reports no additional complaints Resp Reports no additional complaints GI Reports no additional complaints Reports no additional complaints Physical exam (Primary Care) Vital Signs: Last Vital Signs Temp 98.0 F 10/29/25 09:33 Pulse 73 10/29/25 09:33 Resp 17 10/29/25 09:33 BP 116/76 10/29/25 09:33 Pulse Ox 98 10/29/25 09:33 Oxygen Delivery Method Room Air 10/29/25 09:33 BMI result Body Mass Index 29.9 Tobacco/Smoking Status: Tobacco use Status Tobacco use date assessed 10/29/25 10/29/25 09:34 Patient Tobacco Use Status Never used Tobacco 10/29/25 09:16 e-Cigarette/Vaping Use Never Used 10/29/25 09:16 Thrive Assessment: Date of Thrive Assessment Date Thrive assessed 04/28/25 10/29/25 09:16 Currently or been in a relationship where the following occur: No concerns reported Const General: no acute distress HENMT Throat: Yes posterior oropharynx normal Resp Effort & Inspection: normal respiratory effort Auscultation: clear to auscultation bilaterally Cardio Rhythm: regular rhythm Heart sounds: S1 normal heart sound present and S2 normal heart sound present GI Inspection: Yes normal to inspection Palpation (GI): Soft to palpation Percussion: Yes normal to percussion Auscultation: normal bowel sounds Coding Level of Care Code Est Pt Level 4 (84385) Diagnoses Angina at rest I20.89 Primary hypertension I10 Hypertension type: primary hypertension Hyperlipidemia E78.5 Anxiety F41.9 Assessment & Plan Assessment & Plan (1) Angina at rest: Code(s): I20.89 - Other forms of angina pectoris Category: Medical Plan: EKG showed normal sinus rhythm, nonspecific ST-T changes, schedule nuclear stress test to evaluate for angina (2) HTN (hypertension): Code(s): I10 - Essential (primary) hypertension Category: Medical Qualifiers: Hypertension type: primary hypertension Qualified Code(s): I10 - Essential (primary) hypertension Plan: Continue current medications (3) Hyperlipidemia: Code(s): E78.5 - Hyperlipidemia, unspecified Category: Medical Plan: Continue statin (4) Anxiety: Code(s): F41.9 - Anxiety disorder, unspecified Category: Medical Plan: Stress management discussed with the patient citalopram 10 mg daily will be started. Patient will follow-up in 2 months Orders: Orders CA stress test Today I20.89 - Other forms of angina pectoris NM cardiolite stress test Today I20.89 - Other forms of angina pectoris AMB EKG-In Office Today I10 - Essential (primary) hypertension, I20.89 - Other forms of angina pectoris Medications: New citalopram 10 mg PO DAILY 90 tabs 2RF
[2025-10-29 09:33] VITALS: BP 116/76; PULSE 73; RESP 17; TEMP 36.7; O2SAT 98; BMI 29.9
== END 2025-10-29 10:27 | disposition home or self-care (01) ==
LOC: HO.HMCC 09:02
PROVIDERS: PCP Internal Medicine; Visit Provider Internal Medicine
DX: I20.89 Other forms of angina pectoris (principal); I10 Essential (primary) hypertension; E78.5 Hyperlipidemia, unspecified; F41.9 Anxiety disorder, unspecified

== ENCOUNTER → 2025-10-29 09:02 | Outpatient (BNVA) | payer MEDICARE, SELFPAY | PROVIDERS: PCP Internal Medicine; Visit Provider Internal Medicine | DX: I10 Essential (primary) hypertension (principal); I20.89 Other forms of angina pectoris; E78.5 Hyperlipidemia, unspecified; R41.9 Unspecified symptoms and signs involving cognitive functions and awareness; Z79.899 Other long term (current) drug therapy | CPT/HCPCS: 99212 ==

== ENCOUNTER 2025-11-18 07:04 | Outpatient (AMB) | payer MEDICARE, SELFPAY ==
[2025-11-18 07:04] VITALS: BP 112/74; PULSE 78; O2SAT 98; BMI 29.8
--- NOTE | 2025-11-18 07:04 | AM.OFFWIN_ITS ---
Intake Vital Signs 11/18/25 07:04 Height 5 ft 3 in Weight 168 lb BMI 29.8 BP 112/74 Blood Pressure Location Rt brachial Position Sitting Pulse 78 Pulse Source Pulse Oximeter Pulse Oximetry (%) 98 Oxygen Delivery Method Room Air Intake Visit Reasons: EP-lt arm lump Intake Note: Patient presents c/o lump on left upper arm - unsure how long it has been there but was noticed about 1 week ago. Tender to touch. Patient Tobacco Use Status: Never used Tobacco Allergies shrimp Allergy (Intermediate, Verified 11/18/25 07:09) unknown erythromycin base (From Erythrocin) Allergy (Mild, Verified 11/18/25 07:09) rash cat dander Allergy (Unknown, Verified 11/18/25 07:09) Unknown pollen extracts Allergy (Unknown, Verified 11/18/25 07:09) Unknown HPI HPI Comments History of Present Illness Details Patient is a 65yo F who presents to office with bump to LUE She is R hand dominant Denies trauma or injury States that she noticed a bump a few days before Dariusz Pt states it is tender only with palpation She denies pain at rest, 0/10 Noticed a few pins and needles sensation to digits LUE on occasion. None currently She denies trying anything for it Worse with palpation No skin color changes or rashes No new tattoos to extremity No fever or chills Denies CP, SOB, hx of blood clots Sees Dr. Concepcion in the office [facility] Medical History Acute upper respiratory infection Annual physical exam Hyperglycemia Hyperlipidemia Overweight Fatty liver (~10/20/23) Lower back pain Edema Allergic rhinitis Colonoscopy refused Normal Pap smear HTN (hypertension) Breast implant status Surgical History H/O colonoscopy S/P left breast implant History of removal of skin mole H/O removal of cyst Family History Father HTN (hypertension) Mother Skin cancer COPD (chronic obstructive pulmonary disease) Other Mental health disorder Substance use disorder Social History Household Members Other:: exercise 5 x a week, work at [employer], single, no children Housing: House Are you a primary medical care manager to a significant other at home: No Do you presently have visiting nurse or other home services: No Patient Tobacco Use Status: Never used Tobacco e-Cigarette/Vaping Use: Never Used Second Hand Smoke Exposure: Yes (as a child, nothing recent ) service: No Current occupational status: employed Cognitive needs: No Hearing needs: No Vision needs: Yes Review of Systems Const Denies chills and Denies fever(s) Card Denies chest pain and Denies dyspnea Resp Denies dyspnea Musc Denies numbness and Reports tingling Skin/Breast Denies pruritus, Denies erythema, Reports skin swelling (bump to LUE), Denies sores and Denies wounds Neuro Denies numbness and Reports tingling Physical Exam Exam Exam: General: Non-toxic, NAD. Speaking full sentences. Skin: Warm dry throughout. Upper extremities are equal in size and shape bilaterally. There is noted tattoos to bilateral forearms No visible masses LUE has one palpable LUE 1cm x 1cm circular, well demarcated, mobile, slightly tender mass located 1.5cm proximal to antecubital fossa along ulnar side Eye: EOMI Respiratory: No respiratory distress Cardiac: Radial pulse intact bilateral upper extremities and equal in strength and timing and cap refill < 2 seconds MSK: Full ROM extremities. Full sensation digits LUE Neurology: Alert. No aphasia or facial droop. Gait without abnormality Psych: Good mood and affect Vital Signs: Last Vital Signs Pulse 78 11/18/25 07:04 BP 112/74 11/18/25 07:04 Pulse Ox 98 11/18/25 07:04 Oxygen Delivery Method Room Air 11/18/25 07:04 BMI result Body Mass Index 29.8 Assessment & Plan Assessment & Plan (1) Arm mass: Code(s): R22.30 - Localized swelling, mass and lump, unspecified upper limb Qualifiers: Laterality: left Qualified Code(s): R22.32 - Localized swelling, mass and lump, left upper limb Plan: Patient seen and evaluated. US ordered for lipoma vs superficial thrombophlebitis No concern for DVT at this time as there is no tenderness to palpation of LUE deep venous system. Our scheduling office will call her for the appointment but she was also given their number to arrange US for next 24-48 hours Patient gave verbal understanding and had no additional questions or concerns at time of discharge All questions answered Orders: Orders US Extremity Nonvas Limited LT Today R22.30 - Localized swelling, mass and lump, unspecified upper limb Coding Level of Care Code Est Pt Level 3 (59773) Diagnoses Mass of left upper extremity R22.32 Laterality: left
--- OUTSIDE RECORDS SUMMARY | 2025-11-18 08:48 | XMS_ITS | Patient Health Record ---
Author Organization [facility] Address [address] [place] [address] Care Team Providers Care Cutter Aluminum Sheet Name Role Phone [email or web address] Primary Care Provider [phone] Allergies Allergen (clinical drug ingredient) Drug/Non Drug Allergy documented on EMR Reaction Allergy Type Onset Date Status erythromycin ERTHROYMYCIN (uncoded) skin rash Allergy Active shrimp allergenic extract Shrimp (Diagnostic) Hives Drug Allergy Active Reason For Referral No Information Medications Medication SIG (Take, Route, Frequency, Duration) Notes Start Date End Date Status ALLERGY SHOTS 1 X MONTH *Please review for potential replacement for e-prescription and drug interaction check* Active Losartan Potassium 100 MG Tablet 1 tab(s) orally once a day; Duration: 90 DAY(S) 09/09/2019 Active Flonase Allergy Relief 50 MCG/ACT Suspension 1 spray(s) intranasally once a day prn Active hydroCHLOROthiazide 25 MG Tablet 1 tab(s) orally once a day; Duration: 90 DAY(S) 09/09/2019 Active Citalopram Hydrobromide 20 MG Tablet 1 tab(s) orally once a day; Duration: 90 Active Metoprolol Succinate ER 50 MG Tablet Extended Release 24 Hour TAKE 1 TABLET BY MOUTH EVERY DAY; Duration: 90 Active Immunizations Vaccine Route Administration Date Status Comme nts Tdap (Adacel) IM Intramuscular 03/16/2015 Administered Social History Tobacco Use: Social History Observation Description Date Details (start date - stop date) Never Smoker NA - NA Social History Drug/Alcohol: Social Info Question Answer Notes Alcohol Screen Did you have a drink containing alcohol in the past year? Yes How often did you have a drink containing alcohol in the past year? Two to three times per week (3 points) How many drinks did you have on a tpical day when you were drinking in the past year? 1 or 2 (0 points) How often did you have six or more drinks on one occassion in the past year? 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 at home alcohol use: yes mix drinks drug use: no Hobbies/Exercise habits: Jewelry making, eliptical machine, , Gardening Coffee/Tea/Soda: yes Coffee 2 daily, Tea occ, soda occ Marital Status single experience no Living with fiance in [facility] Pets cat smokers in household no Drugs no Section Notes: nonsmoker nonsmoker Problems Problem Type SNOMED Code ICD Code Onset Dates Problem Status W/U Status Risk Notes Problem Benign essential hypertension (1148223) Benign essential hypertension (I10) Active confirmed Problem Mixed anxiety and depressive disorder (306769137) Anxiety associated with Depression (F41.8) Active confirmed Problem Obesity (026686116) Obesity (E66.9) Active conf irmed Problem Mixed hyperlipidemia (926540738) Mixed hyperlipidemia (E78.2) Active confirmed Problem Steatohepatitis (179252959) Steatohepatitis (K75.81) Active confirmed Problem Environmental allergy (357149526) Environmental allergies (Z91.09) Active confirmed Problem Osteochondropathy (61018449) Bone disorder (M89.9) Active confirmed Plan Of Treatment Future Test Test Name Order Date Mammogram Screening Bilatera l, Perform Breast US and/or US-guided aspiration and/or breast biopsy if warranted 10/28/2014 Mammogram Screening Bilatera l, Perform Breast US and/or US-guided aspiration and/or breast biopsy if warranted 03/16/2015 Bone density (Three site Dexa) 5 Stool OCCULT BLOOD X 3( Hemocult ICT iFO BT) 11/01/2018 Insurance Providers Payer Name Payer Address Payer Phone Subscriber Number Group Number Insured Name Patient Relationship to Insured Coverage Start Date Coverage End Date [facility] [address] [place] [id number] COURTNEY ZAMBRANO Self - patient is the insured Medical (General) History Medical History History ICD Code hypertension hypercholesterolemia h/o environmental allergies- Aluminum [employer] Pravin finn and getting immunotherapy depression with anxiety Pt. refused mammograms aware of risk of missing breast cancer with only Self exam seasonal allergies Pt declined invasive colon c ancer screening will only do stool cards and aware she may be missing colon cancer screeing Pt. declined flu shot Surgical History Surgery Date(Month/Year) breast saline implants 1992- Dr daigle 1 993 sebaceous cyst removed from back of neck 15 years ago
== END 2025-11-18 08:23 | disposition home or self-care (01) ==
PROVIDERS: PCP Internal Medicine; Visit Provider Physician Assistant
DX: R22.32 Localized swelling, mass and lump, left upper limb (principal)

== ENCOUNTER → 2025-11-18 07:04 | Outpatient (BNVA) | payer MEDICARE, SELFPAY | PROVIDERS: PCP Internal Medicine; Visit Provider Physician Assistant | DX: R22.32 Localized swelling, mass and lump, left upper limb (principal) | CPT/HCPCS: 99212 ==